=== PATIENT | female | born 1935 | race African-American/Black ===

== ENCOUNTER 2017-05-06 08:16 | Inpatient (IN) | payer MEDICARE, MEDICAID ==
[2017-05-06 09:15] LABS: Bilirubin Negative (Negative); Blood, Urine Negative (Negative); Glucose, Urine (Dipstick) 100 mg/dL (Negative); Ketone, Urine Negative (Negative); Nitrite Positive (Negative); Protein, Urine (Dipstick) 100 mg/dL (Neg-Trace)
[2017-05-06 09:17] LABS: Bacteria/HPF 4+ HPF (None Seen)
[2017-05-06 09:29] LABS: Hyaline Casts/LPF 0-3 HYALINE CAST LPF (0-3 Hyaline); RBC/HPF 0-3 HPF (0-3); Renal Epithelial 0-3 HPF (0-3); Transitional Epithelial 0-3 HPF (0-3)
[2017-05-06 09:53] LABS: ALT (SGPT) 31 U/L (8-55); AST (SGOT) 39 U/L (5-34); Alkaline Phosphatase 154 U/L (40-150); Anion Gap 12 mmol/L (10-20); BUN (Urea Nitrogen) 37 mg/dL (9.8-20.1); Calc. Creatinine Clearance 0 mL/min (70-130); Calcium 9.4 mg/dL (7.8-10.44); Carbon Dioxide 33 mmol/L (23-31); Chloride 103 mmol/L (98-107); Estimated GFR-MDRD 42; Globulin 3.9 g/dL (2.4-3.5); Protein, Total 6.7 g/dL (6.0-8.3)
--- NOTE | 2017-05-06 10:01 | CT ---
CT BRAIN WITHOUT CONTRAST: Date: 05/06/17 HISTORY: Headache. FINDINGS: Comparison made with exam of 01/22/17. There is ventricular sulcal prominence, which is stable. The ventricular size is stable and the basi lar cisterns are patent. No evidence of acute infarct, hemorrhage, midline shift, or abnormal extra- axial fluid collections are seen. The bony calvarium is intact. The visualized paranasal sinuses and mastoid air cells are well aerated. There is mucosal disease in the posterior right ethmoid air lulu ls. IMPRESSION: 1. No CT evidence of acute intracranial process. 2. Paranasal sinus disease. POS: [facility]
[2017-05-06] MEDS ORDERED: Piperacillin/Tazobactam 4.5 GM VIAL ONE (10:22)
[2017-05-06 12:30] LABS: Hematocrit 41.2 % (36.0-47.0); Mean Platelet Volume 9.3 fL (7.4-10.4)
[2017-05-06 13:05] LABS: Band 35 % (5-11); Neutrophil 57 % (42-75)
[2017-05-06] MEDS ORDERED: Loratadine 10 MG TAB PO PRN (13:29)
[2017-05-06] MEDS ORDERED: Ondansetron HCl/PF 4 MG/2 ML Vial IVP PRN (13:29)
[2017-05-06] MEDS ORDERED: Eucerin (Mineral Oil/Petrolatum,White) 30 gm Jar TOP PRN (13:29)
[2017-05-06] MEDS ORDERED: Senokot 8.6 MG TAB PO PRN (13:29)
[2017-05-06] MEDS ORDERED: Mag-Al 1200 mg/1200 mg/30 ML UDCUP PO PRN (13:29)
[2017-05-06] MEDS ORDERED: Milk Of Magnesia 30 ML UDCUP PO PRN (13:29)
[2017-05-06] MEDS ORDERED: HumaLOG 300 UNITS/3 ML VIAL SC PRN ×2 (13:29)
[2017-05-06] MEDS ORDERED: Zolpidem Tartrate 5 MG TAB PO PRN (13:29)
[2017-05-06] MEDS ORDERED: Sodium Chloride 0.65% Nasal 44 ML BOT EA NARE PRN (13:29)
[2017-05-06] MEDS ORDERED: Dextrose 50% Abboject 50 ML SYRINGE SLOW IVP PRN (13:29)
[2017-05-06] MEDS ORDERED: Ondansetron ODT 4 MG TAB PO PRN (13:29)
[2017-05-06] MEDS ORDERED: Artificial Tears 18 DROP/0.9 ML EA EYE PRN (13:29)
[2017-05-06] MEDS ORDERED: Dextrose 5% in Water 1,000 ML IV PRN (13:29)
[2017-05-06] MEDS ORDERED: Diabetic Tussin 200 MG/10 ML UDCUP PO PRN (13:29)
[2017-05-06] MEDS ORDERED: Loperamide HCl 2 MG CAP PO PRN (13:29)
[2017-05-06] MEDS: Meropenem 1 GM in Sodium Chloride 0.9% 100 ML IVPB SCH ×2 (14:27→21:17)
[2017-05-06] MEDS ORDERED: Sodium Chloride 0.9% 1,000 ML IV SCH (14:30)
[2017-05-06] MEDS: Sodium Chloride 0.9% 1,000 ML IV SCH (14:40)
--- NOTE | 2017-05-06 14:58 | HP ---
PRIMARY CARE PHYSICIAN: Slade Damon M.D. REASON FOR ADMISSION: Encephalopathy and urinary tract infection. HISTORY OF PRESENT ILLNESS: A 81-year-old female who lives at [facility]. She has chr onic indwelling Turcios catheter. At the retirement, the patient was appeared altered and confused. She was complaining of multiple things. She was having lower abdominal pain. She was having very poor appetite. Her blood sugar was running high and she was having low-grade fever at retirement . The patient was also having headache, body ache and for that reason, the patient was sent to the emergency room for evaluation. At the retirement, her blood sugar was running in the 400s. The patient was altered from her base line and this was gotten worse for the last 2-3 days. The patient was having low-grade fever in our hospital. She was hemodynamically stable in the emerg ency room. The patient had a CT brain which did not show any acute intracranial process. The patie nt's routine blood tests showed leukocytosis with bandemia. She was also found with acute kidney fa ilure and abnormal LFT. Her urinalysis was suggestive of urinary tract infection. At this point, t he patient is being admitted to medical floor for further evaluation and treatment. REVIEW OF SYSTEMS: The following complete review of systems was negative, unless otherwise mentione d in the HPI or below: Constitutional: Weight loss or gain, ability to conduct usual activities. Skin: Rash, itching. Eyes: Double vision, pain. ENT/Mouth: Nose bleeding, neck stiffness, pain, tenderness. Cardiovascular: Palpitations, dyspnea on exertion, orthopnea. Respiratory: Shortness of breath, wheezing, cough, hemoptysis, fever or night sweats. Gastrointestinal: Poor appetite, abdominal pain, heartburn, nausea, vomiting, constipation, or diar steven. Genitourinary: Urgency, frequency, dysuria, nocturia. Musculoskeletal: Pain, swelling. Neurologic/Psychiatric: Anxiety, depression. Allergy/Immunologic: Skin rash, bleeding tendency. Please see my HPI for pertinent positives and negatives. All other review of systems reviewed and n egative except as mentioned in the HPI. Reliability of review of systems is uncertain because of th e patient's level of consciousness. PAST MEDICAL HISTORY: Paroxysmal atrial fibrillation, chronic anticoagulation with Xarelto, history of recurrent urinary tract infection, Parkinson's disease, chronic physical deconditioning, decubit us ulcer on sacral area which is present on admission, diabetes type 2, history of Crohn's disease, hypertension, and gastroesophageal reflux disease. PAST SURGICAL HISTORY: Appendicectomy, foraminectomy with lumbar laminectomy. PAST PSYCHIATRIC HISTORY: Anxiety and depression. SOCIAL HISTORY: The patient lives at the [facility]. No history of tobacco, alcohol o r illicit drug abuse. The patient is bed bound. She requires lot of assistance from bed to wheelch air. FAMILY HISTORY: No strong family history of premature coronary artery disease, stroke or cancer. ALLERGIES: CODEINE and OPIOIDS. EMERGENCY ROOM COURSE: The patient is given vancomycin and Zosyn and IV fluid. CURRENT HOME MEDICATIONS: As per previous discharge summary, the patient is on following medication s: Amiodarone 200 mg daily, carbidopa/levodopa one tablet t.i.d., Pepcid 20 mg p.o. at bedtime, fol ic acid 1 mg p.o. daily, Lasix 40 mg p.o. b.i.d., Lantus insulin 15 units subcu at bedtime, pravasta tin 20 mg p.o. at bedtime, Xarelto 15 mg p.o. daily, trospium 20 mg p.o. at bedtime, Glucotrol 10 mg p.o. daily, pravastatin 10 mg p.o. at bedtime, MiraLax 17 grams p.o. daily, and vitamin C 500 mg p. o. b.i.d. PHYSICAL EXAMINATION: VITAL SIGNS: On arrival, blood pressure 140/61, pulse 73, respiratory rate 20, temperature 98.0, sa turation 98% on room air, weight 81.6 kilograms. GENERAL: The patient is currently alert, arousable, no obvious acute distress, confused and incoher ent. HEENT: Normocephalic and atraumatic. Eyes: Pupils round and reactive to light. Extraocular muscl es are intact. ENT: Oropharynx within normal limits. Dry mucous membranes. No oral lesions. No pharyngeal eryth scottie, no exudate. NECK: Supple. Range of motion is normal. No meningeal signs of irritation. LUNGS: Clear to auscultation without any rhonchi or rales. CARDIAC: S1, S2 regular. No murmur, no gallop, no rub. ABDOMEN: Soft, suprapubic tenderness noted. No peritoneal sign, no organomegaly, no mass. No dist ention. Bowel sounds present. BACK: Unremarkable, no CVA tenderness. GENITOURINARY: Turcios catheter in place. BACK EXAMINATION: Decubitus ulcer 8 x 4 cm without any surrounding erythema stage IV. EXTREMITIES: Upper extremity passive movements of all joints are normal. Lower extremity, no edema . Good peripheral pulsation. NEUROLOGIC: The patient is moving all four limbs. No focal neurological deficit noted. SKIN: No skin rash. PSYCHIATRIC: Flat affect. SIGNIFICANT LABS: 1. CT brain based on my review, no acute intracranial process. 2. CBC: WBC 12.0, hemoglobin 13.1, platelet 135 with bandemia 35. 3. BMP: Sodium 144, potassium 3.6, chloride 103, carbon dioxide 33, BUN 37, creatinine 1.45, gluco se 275, calcium 9.4, lactic acid 2.0. 4. LFT: AST 39, ALT 31, alkaline phosphatase 154, albumin 2.8. Urinalysis consistent with urinary tract infection. ASSESSMENT AND PLAN/IMPRESSION: 1. Sepsis with acute organ dysfunction. This patient has acute kidney failure, acute encephalopath y and her urinalysis suggestive of urinary tract infection. At this point, the patient with sepsis with acute organ dysfunction criteria, given bandemia, low-grade fever. The patient will be kept on broad spectrum antibiotic therapy with meropenem. We will follow up on culture result and based on culture result, we will change antibiotic therapy accordingly. We will continue with IV fluid with normal saline at 75 mL per hour. 2. Acute kidney failure, prerenal and septic etiology. We will continue with IV fluid and we will repeat BMP tomorrow. 3. Abnormal liver function tests, likely related with underlying sepsis. We will repeat LFT tomorr ow along with BMP. 4. Urinary tract infection secondary to chronic indwelling Turcios catheter. Based on previous cultu re and sensitivity result, we are starting with meropenem and we will follow up on culture result. Most likely this patient has underlying invasive urinary tract infection. At this point, we will tr eat with antibiotic therapy. 5. Paroxysmal atrial fibrillation on chronic anticoagulation therapy. Once we verify her home dose of amiodarone and Xarelto, we will continue while in hospital as well. 6. Diabetes type 2. We will continue with insulin as per sliding scale per protocol. Diabetic t will be given. We will verify her home dose of insulin and then we will start that dose in the spital and we will titrate insulin and diabetic medication. 7. Dyslipidemia. We will continue pravastatin 10 mg p.o. at bedtime. 8. Chronic anticoagulation therapy. We will continue Xarelto 15 mg p.o. daily. 9. Parkinson's disease. We will continue carbidopa/levodopa 1 tablet 2-3 times daily. 10. Gastroesophageal reflux disease. We will continue Pepcid 20 mg p.o. b.i.d. 11. Obesity with body mass index 35. Weight loss education given. 12. Hypertension. We will continue her home medication while in hospital and monitor and titrate b lood pressure medication. 13. Chronic physical deconditioning. The patient has bedbound status and she lives at retirement . 14. Deep venous thrombosis prophylaxis. The patient is already on Xarelto therapy. 15. Neurogenic bladder. The patient requiring chronic Turcios catheter. 16. Decubitus ulcer, sacral area. Please see wound care team note for detailed description. This is present on admission. The patient will need wound care team consultation supplement with Don b .i.d. and supplement with Glucerna b.i.d. Plan of care discussed with the patient's family member a t bedside. Disposition plan based on clinical course. We are expecting patient's stay in the hospital more yg n 2 midnights. CODE STATUS: The family member they do not want any kind of intubation in case of her cardiopulmona ry arrest, but they are okay with CPR, so they want to DO NOT INTUBATE status and that order will be written in the hospital.
[2017-05-06] MEDS: Pravastatin Sodium 20 MG TAB PO SCH (21:20)
[2017-05-06] MEDS: Rivaroxaban 15 MG TAB PO SCH (21:20)
[2017-05-06] MEDS: Carbidopa/Levodopa 25-250 mg Tablet PO SCH (21:21)
[2017-05-07] MEDS: Sodium Chloride 0.9% 1,000 ML IV SCH ×4 (05:15→18:03)
[2017-05-07 05:57] LABS: ALT (SGPT) 14 U/L (8-55); AST (SGOT) 23 U/L (5-34); Alkaline Phosphatase 98 U/L (40-150); Anion Gap 9 mmol/L (10-20); BUN (Urea Nitrogen) 31 mg/dL (9.8-20.1); Calc. Creatinine Clearance 56 mL/min (70-130); Calcium 8.5 mg/dL (7.8-10.44); Carbon Dioxide 27 mmol/L (23-31); Chloride 111 mmol/L (98-107); Estimated GFR-MDRD 59; Globulin 3.2 g/dL (2.4-3.5); Protein, Total 5.5 g/dL (6.0-8.3)
[2017-05-07 06:03] LABS: Band 4 % (5-11); Hematocrit 34.8 % (36.0-47.0); Mean Platelet Volume 9.1 fL (7.4-10.4); Metamyelocyte 1 % (0-0); Neutrophil 70 % (42-75); Red Blood Cell (RBC) Count 3.69 mill/uL (4.20-5.40); White Blood Cell (WBC) Count 13.3 thou/uL (4.8-10.8)
[2017-05-07] MEDS: Meropenem 1 GM in Sodium Chloride 0.9% 100 ML IVPB SCH ×3 (06:11→21:44)
[2017-05-07] MEDS ORDERED: Potassium Chloride 20 MEQ TAB PO SCH (08:00)
[2017-05-07] MEDS: Carbidopa/Levodopa 25-250 mg Tablet PO SCH ×3 (08:52→21:45)
[2017-05-07] MEDS: Folic Acid 1 MG TAB PO SCH (08:52)
--- NOTE | 2017-05-07 10:44 | PQF ---
ARCADIO MORALSE SALIM NOORJIBHAI MD [id number] CLINICAL DOCUMENTATION IMPROVEMENT CLARIFICATION FORM: ICD-10 Updated PLEASE DO AN ADDENDUM TO THE PROGRESS NOTE WITH ANY DOCUMENTATION UPDATES OR ADDITIONS AND CARRY THROUGH TO DC SUMMARY. THANK YOU. DATE: 05-07-17 ATTN: DR. AYERS Please exercise your independent, professional judgment in responding to the clarification form. Clinical indicators are provided on the bottom of this form for your review Please check appropriate box(s): [ x ] Severe Sepsis due to UTI DUE TO Indwelling Turcios Catheter [ ] Severe Sepsis due to UTI NOT due to Indwelling Turcios Catheter [ ] Other diagnosis [ ] Unable to determine For continuity of documentation, please document condition throughout progress notes and discharge summary. Thank You. CLINICAL INDICATORS - SIGNS / SYMPTOMS / LABS H&P: Encephalopathy Chronic Indwelling Turcios Catheter Sepsis with organ dysfunction (MARY) LABS: 10-5 WBC 12.0 10-6 WBC 13.3 10-5 TEMP 99.9 RESP 24 RISK FACTORS H&P: Chronic Indwelling Turcios Catheter Sepsis with organ dysfunction (MARY) UTI TREATMENTS: CPOE - MEROPENEM IV IVF BLOOD CULTURES: RIGHT ARM - GRAM NEGATIVE JABARI LEFT ARM - E.Coli URINE CULTURES: GRAM NEGATIVE JABARI THANK YOU, RADHA (This form is maintained as a part of the permanent medical record) 2014 [employer]. All Rights Reserved Radha Draper RN, BS [email or web address] Cell [facility]
[2017-05-07] MEDS: Acetaminophen 325 MG TAB PO PRN ×2 (12:16→18:03)
--- NOTE | 2017-05-07 12:37 | PQF ---
ARCADIO MORALES SALIM NOORJIBHAI MD [id number] CLINICAL DOCUMENTATION IMPROVEMENT CLARIFICATION FORM: ICD-10 Updated PLEASE DO AN ADDENDUM TO THE PROGRESS NOTE WITH ANY DOCUMENTATION UPDATES OR ADDITIONS AND CARRY THROUGH TO DC SUMMARY. THANK YOU. DATE: 05-07-17 ATTN: DR. AYERS Please exercise your independent, professional judgment in responding to the clarification form. Clinical indicators are provided on the bottom of this form for your review Please check appropriate box(s): [ x] Functional Quadriplegia d/t chronic physical deconditioning and Parkinson Dx [ ] Weakness (please specify anatomical area) Specify: [ ] Non dominant side [ ] Dominant side [ ] Other diagnosis [ ] Unable to determine CLINICAL INDICATORS - SIGNS / SYMPTOMS / LABS H&P: POOR APPETITE CHRONIC PHYSICAL DECONDITIONING BEDBOUND STATUS AND LIVES AT [facility] DECUBITUS ULCER 8X4 CM STAGE IV NURSING ASSESSMENT 10-5 RICH SCORES: MOBILITY - VERY LIMITED / ACTIVITY - BED RIDDEN CHRONIC INDWELLING KHAN CATHETER INCONTINENT - STOOL RISK FACTORS H&P: POOR APPETITE PARKINSON CHRONIC PHYSICAL DECONDITIONING BEDBOUND STATUS AND LIVES AT [facility] TREATMENT: WOUNDCARE CONSULT FOR DECUBITUS ULCER TURN Q2H MATTRESS: PRESSURE REDUCTION; SKIN KEPT FROM EXCESSIVE MOISTURE; ENCOURAGE TO PARTICIPATE IN FEEDING THANK YOU, RADHA SINGH [employer] House Supervisor [employer] (This form is maintained as a part of the permanent medical record) 2014 [employer]. All Rights Reserved Radha Draper RN, BS [email or web address] [facility]ITAL[facility]
--- NOTE | 2017-05-07 13:31 | PDOC.PN ---
- Subjective Encounter Start Date: 05/07/17 Encounter Start Time: 09:45 -: old records requested/rev Patient seen and examined. No new complaints. No overnight events, no fever - Objective Resuscitation Status: Resuscitation Status DNI:No Intubation MAR Reviewed: Yes Vital Signs & Weight: Vital Signs (12 hours) Temp Pulse Resp BP Pulse Ox 05/07/17 08:00 98.3 F 68 16 05/07/17 07:44 98.3 F 68 16 120/69 95 05/07/17 04:00 97.9 F 76 20 114/65 95 Weight Weight 186 lb 9 oz I&O: 05/06/17 05/07/17 05/08/17 06:59 06:59 06:59 Output Total 500 Balance -500 Result Diagrams: 05/07/17 05:01 05/07/17 05:01 Additional Labs: Accuchecks 05/07/17 05/07/17 05/06/17 11:19 05:27 20:14 POC Glucose 141 H 157 H 178 H 05/06/17 16:35 POC Glucose 191 H Phys Exam - Physical Examination Constitutional: NAD HEENT: PERRLA, moist MMs, sclera anicteric Neck: no JVD, supple Respiratory: no wheezing, no rales, no rhonchi Cardiovascular: RRR, no significant murmur, no rub Gastrointestinal: soft, non-tender, no distention, positive bowel sounds Musculoskeletal: no edema, pulses present Neurological: non-focal Lymphatic: no nodes Psychiatric: normal affect Skin: normal turgor Deviation from normal: see WCT note for decubitus ulcer Dx/Plan (1) Acute worsening of stage 3 chronic kidney disease Code(s): N18.3 - CHRONIC KIDNEY DISEASE, STAGE 3 (MODERATE) Status: Acute (2) Decubitus ulcer of sacral area Status: Acute Qualifiers: Pressure ulcer stage: stage 3 Qualified Code(s): L89.153 - Pressure ulcer of sacral region, stage 3 (3) Encephalopathy acute Code(s): G93.40 - ENCEPHALOPATHY, UNSPECIFIED Status: Acute (4) Hypokalemia Code(s): E87.6 - HYPOKALEMIA Status: Acute (5) Sepsis with acute organ dysfunction Code(s): A41.9 - SEPSIS, UNSPECIFIED ORGANISM; R65.20 - SEVERE SEPSIS WITHOUT SEPTIC SHOCK Status: Acute (6) UTI (urinary tract infection) Status: Acute (7) CKD (chronic kidney disease) stage 3, GFR 30-59 ml/min Status: Chronic (8) Diabetes type 2, controlled Code(s): E11.9 - TYPE 2 DIABETES MELLITUS WITHOUT COMPLICATIONS Status: Chronic (9) HTN (hypertension) Code(s): I10 - ESSENTIAL (PRIMARY) HYPERTENSION Status: Chronic (10) Obesity (BMI 30-39.9) Code(s): E66.9 - OBESITY, UNSPECIFIED Status: Chronic (11) Parkinson disease Code(s): G20 - PARKINSON'S DISEASE Status: Chronic (12) Paroxysmal atrial fibrillation Code(s): I48.0 - PAROXYSMAL ATRIAL FIBRILLATION Status: Chronic (13) Physical deconditioning Code(s): R53.81 - OTHER MALAISE Status: Chronic (14) Urethral stricture Code(s): N35.9 - URETHRAL STRICTURE, UNSPECIFIED Status: Chronic (15) Urinary retention Code(s): R33.9 - RETENTION OF URINE, UNSPECIFIED Status: Chronic (16) Bacteremia Code(s): R78.81 - BACTEREMIA Status: Acute - Plan cont current plan of care, plan discussed w/ family, continue antibiotics, social services assistant * continue meropenam * medication reviewed as below * symptomatic treatment * wound care. * replace potassium * slow improvement Review of Systems - Review of Systems Constitutional: Weakness. negative: Fever, Chills, Sweats, Malaise, Other ENT: negative: Ear Pain, Ear Discharge, Nose Pain, Nose Discharge, Nose Congestion, Mouth Pain, Mouth Swelling, Throat Pain, Throat Swelling, Other Respiratory: negative: Cough, Dry, Shortness of Breath, Hemoptysis, SOB with Excertion, Pleuritic Pain, Sputum, Wheezing Cardiovascular: negative: Chest Pain, Palpitations, Orthopnea, Paroxysmal Noc. Dyspnea, Edema, Light Headedness, Other Gastrointestinal: negative: Nausea, Vomiting, Abdominal Pain, Diarrhea, Constipation, Melena, Hematochezia, Other Genitourinary: negative: Dysuria, Frequency, Incontinence, Hematuria, Retention , Other Musculoskeletal: negative: Neck Pain, Shoulder Pain, Arm Pain, Back Pain, Hand Pain, Leg Pain, Foot Pain, Other Other: not reliable as pt is still confused - Medications/Allergies Allergies/Adverse Reactions: Allergies Allergy/AdvReac Type Severity Reaction Status Date / Time codeine Allergy Verified 05/06/17 12:57 Opioids Analgesics Allergy Uncoded 07/01/16 16:36 Medications: Current Medications Acetaminophen (Tylenol) 650 mg PO Q4H PRN PRN Reason: Headache/Fever or Pain Last Admin: 05/07/17 12:16 Dose: 650 mg Al Hydroxide/Mg Hydroxide (Maalox) 30 ml PO Q6H PRN PRN Reason: Heartburn or Indigestion Amiodarone HCl (Cordarone) 200 mg PO DAILY [facility] Last Admin: 05/07/17 08:52 Dose: 200 mg Artificial Tears (Tears Naturale) 0 drop EA EYE PRN PRN PRN Reason: Dry Eyes Carbidopa/Levodopa (Sinemet 25-250) 1 tab PO TID [facility] Last Admin: 05/07/17 08:52 Dose: 1 tab Dextrose/Water (Dextrose 50%) 25 gm SLOW IVP PRN PRN PRN Reason: Hypoglycemia Folic Acid (Folvite) 1 mg PO DAILY [facility] Last Admin: 05/07/17 08:52 Dose: 1 mg Glipizide (Glucotrol Xl) 5 mg PO QAM-WM [facility] Last Admin: 05/07/17 08:52 Dose: 5 mg Glucagon (Glucagon) 1 mg IM PRN PRN PRN Reason: Hypoglycemia Guaifenesin (Robitussin Sf) 200 mg PO Q4H PRN PRN Reason: Cough Hydralazine HCl (Apresoline) 10 mg SLOW IVP Q4H PRN PRN Reason: Systolic BP > 180 Dextrose/Water (D5w) 1,000 mls @ 0 mls/hr IV .Q0M PRN; As Directed PRN Reason: Hypoglycemia Meropenem 1 gm/ Sodium (Chloride) 100 mls @ 200 mls/hr IVPB Q8HR [facility] Last Admin: 05/07/17 06:11 Dose: 100 mls Sodium Chloride (Normal Saline 0.9%) 1,000 mls @ 75 mls/hr IV .[id number] [facility] Last Admin: 05/07/17 06:11 Dose: 1,000 mls Insulin Human Lispro (Humalog) 0 units SC .MODERATE SLIDING SC PRN PRN Reason: Moderate Correctional Scale Insulin Human Lispro (Humalog) 0 units SC .BEDTIME SLIDING SC PRN PRN Reason: Bedtime Correctional Scale Loperamide HCl (Imodium) 2 mg PO PRN PRN PRN Reason: Diarrhea/Loose Stools Loratadine (Claritin) 10 mg PO DAILYPRN PRN PRN Reason: Sinus Symptoms Magnesium Hydroxide (Milk Of Magnesium) 30 ml PO DAILYPRN PRN PRN Reason: Constipation Mineral Oil/White Petrolatum (Eucerin Cream) 0 gm TOP BIDPRN PRN PRN Reason: Dry Skin Ondansetron HCl (Zofran Odt) 4 mg PO Q6H PRN PRN Reason: Nausea/Vomiting Ondansetron HCl (Zofran) 4 mg IVP Q6H PRN PRN Reason: Nausea/Vomiting Rasagiline Mesylate ([Azilect] 1 Mg) 0 each PO DAILY [facility] Pravastatin Sodium (Pravachol) 10 mg PO HS [facility] Last Admin: 05/06/17 21:20 Dose: 10 mg Rivaroxaban (Xarelto) 15 mg PO QPM [facility] Last Admin: 05/06/17 21:20 Dose: 15 mg Senna (Senokot) 2 tab PO HSPRN PRN PRN Reason: Constipation Sodium Chloride (Murray Nasal Finley 0.65%) 0 ml EA NARE QIDPRN PRN PRN Reason: Nasal Congestion Sodium Chloride (Flush - Normal Saline) 10 ml IVF Q12HR [facility] Last Admin: 05/07/17 08:52 Dose: Not Given Sodium Chloride (Flush - Normal Saline) 10 ml IVF PRN PRN PRN Reason: Saline Flush Zolpidem Tartrate (Ambien) 5 mg PO HSPRN PRN PRN Reason: Insomnia
[2017-05-07 16:09] VITALS: BMI 35.1
[2017-05-07] MEDS: Pravastatin Sodium 20 MG TAB PO SCH (21:44)
[2017-05-07] MEDS: Rivaroxaban 15 MG TAB PO SCH (21:45)
[2017-05-08] MEDS: Meropenem 1 GM in Sodium Chloride 0.9% 100 ML IVPB SCH ×2 (05:26→14:10)
[2017-05-08 05:35] LABS: Anion Gap 10 mmol/L (10-20); BUN (Urea Nitrogen) 25 mg/dL (9.8-20.1); Calc. Creatinine Clearance 71 mL/min (70-130); Calcium 8.3 mg/dL (7.8-10.44); Carbon Dioxide 25 mmol/L (23-31); Chloride 113 mmol/L (98-107); Estimated GFR-MDRD 77
[2017-05-08] MEDS: Acetaminophen 325 MG TAB PO PRN (06:23)
[2017-05-08 06:29] LABS: Band 7 % (5-11); Hematocrit 34.9 % (36.0-47.0); Mean Platelet Volume 8.8 fL (7.4-10.4); Metamyelocyte 2 % (0-0); Myelocyte 2 % (0-0); Neutrophil 71 % (42-75); Red Blood Cell (RBC) Count 3.67 mill/uL (4.20-5.40); White Blood Cell (WBC) Count 14.5 thou/uL (4.8-10.8)
--- NOTE | 2017-05-08 09:36 | CT ---
CT ABDOMEN AND PELVIS NONCOTNRAST: HISTORY: Bilateral flank pain. COMPARISON: 07/02/16. FINDINGS: Each renal collecting system and ureter are decompressed without stone evident. Turcios catheter deco mpresses the urinary bladder. The lack of contrast limits evaluation for other abnormalities. There is bibasilar atelectasis and minimal bilateral pleural fluid. Hyperdense cyst associated with the anterior cortex of the right k idney is similar in appearance to the prior study. Prominent calcified fibroid involvement of the u terus is again demonstrated. There are degenerative changes of the lumbar spine. Minimal free fluid is present within the dependent portion of the pelvis. IMPRESSION: 1. No CT evidence of urinary tract obstruction or calcification. 2. Chronic-type findings are stable. POS: [facility]
[2017-05-08] MEDS: Carbidopa/Levodopa 25-250 mg Tablet PO SCH ×3 (10:07→20:52)
[2017-05-08] MEDS: Folic Acid 1 MG TAB PO SCH (10:07)
[2017-05-08] MEDS: Sodium Chloride 0.9% 1,000 ML IV SCH (10:14)
--- NOTE | 2017-05-08 13:54 | PDOC.PN ---
- Subjective Encounter Start Date: 05/08/17 Encounter Start Time: 12:00 Subjective: no sob, feels better - Objective Resuscitation Status: Resuscitation Status DNI:No Intubation MAR Reviewed: Yes Vital Signs & Weight: Vital Signs (12 hours) Temp Pulse Resp BP Pulse Ox 05/08/17 08:00 98.5 F 67 16 05/08/17 07:21 98.5 F 67 16 119/70 95 Weight Admit Weight 186 lb Weight 186 lb I&O: 05/07/17 05/08/17 05/09/17 06:59 06:59 06:59 Intake Total 3020 Output Total 500 800 Balance -500 2220 Result Diagrams: 05/08/17 05:08 05/08/17 05:08 Additional Labs: Accuchecks 05/08/17 05/08/17 05/07/17 11:44 05:22 20:01 POC Glucose 126 H 159 H 202 H 05/07/17 16:05 POC Glucose 128 H Phys Exam - Physical Examination HEENT: PERRLA, moist MMs Neck: no JVD, supple Respiratory: no wheezing, no rales Cardiovascular: RRR, no significant murmur Gastrointestinal: soft, non-tender, positive bowel sounds Musculoskeletal: no edema, pulses present Neurological: non-focal, moves all 4 limbs Dx/Plan (1) Bacteremia Code(s): R78.81 - BACTEREMIA Status: Acute Comment: e.coli (2) Decubitus ulcer of sacral area Status: Acute Qualifiers: Pressure ulcer stage: stage 3 Qualified Code(s): L89.153 - Pressure ulcer of sacral region, stage 3 (3) Encephalopathy acute Code(s): G93.40 - ENCEPHALOPATHY, UNSPECIFIED Status: Acute (4) Sepsis with acute organ dysfunction Code(s): A41.9 - SEPSIS, UNSPECIFIED ORGANISM; R65.20 - SEVERE SEPSIS WITHOUT SEPTIC SHOCK Status: Acute (5) UTI (urinary tract infection) Status: Acute Qualifiers: Urinary tract infection type: acute cystitis Hematuria presence: without hematuria Qualified Code(s): N30.00 - Acute cystitis without hematuria (6) CKD (chronic kidney disease) stage 3, GFR 30-59 ml/min Status: Chronic (7) Diabetes type 2, controlled Code(s): E11.9 - TYPE 2 DIABETES MELLITUS WITHOUT COMPLICATIONS Status: Chronic Qualifiers: Diabetes mellitus complication status: with unspecified complications Diabetes mellitus fdc insulin use: without terminal gauger use Qualified Code( s): E11.8 - Type 2 diabetes mellitus with unspecified complications (8) HTN (hypertension) Code(s): I10 - ESSENTIAL (PRIMARY) HYPERTENSION Status: Chronic Qualifiers: Hypertension type: essential hypertension Qualified Code(s): I10 - Essential (primary) hypertension (9) Obesity (BMI 30-39.9) Code(s): E66.9 - OBESITY, UNSPECIFIED Status: Chronic (10) Parkinson disease Code(s): G20 - PARKINSON'S DISEASE Status: Chronic (11) Paroxysmal atrial fibrillation Code(s): I48.0 - PAROXYSMAL ATRIAL FIBRILLATION Status: Chronic (12) Physical deconditioning Code(s): R53.81 - OTHER MALAISE Status: Chronic - Plan on meropenem -: await full culture report -: will likely need iv antibiotics and picc line -: ID consult -: wbc is 14k, CT abd results noted, no obstr uropathy * . Review of Systems - Medications/Allergies Allergies/Adverse Reactions: Allergies Allergy/AdvReac Type Severity Reaction Status Date / Time codeine Allergy Verified 05/06/17 12:57 Opioids Analgesics Allergy Uncoded 07/01/16 16:36 Medications: Current Medications Acetaminophen (Tylenol) 650 mg PO Q4H PRN PRN Reason: Headache/Fever or Pain Last Admin: 05/08/17 06:23 Dose: 650 mg Al Hydroxide/Mg Hydroxide (Maalox) 30 ml PO Q6H PRN PRN Reason: Heartburn or Indigestion Amiodarone HCl (Cordarone) 200 mg PO DAILY [facility] Last Admin: 05/08/17 10:07 Dose: 200 mg Artificial Tears (Tears Naturale) 0 drop EA EYE PRN PRN PRN Reason: Dry Eyes Carbidopa/Levodopa (Sinemet 25-250) 1 tab PO TID [facility] Last Admin: 05/08/17 10:07 Dose: 1 tab Dextrose/Water (Dextrose 50%) 25 gm SLOW IVP PRN PRN PRN Reason: Hypoglycemia Folic Acid (Folvite) 1 mg PO DAILY [facility] Last Admin: 05/08/17 10:07 Dose: 1 mg Glipizide (Glucotrol Xl) 5 mg PO QAM-WM [facility] Last Admin: 05/08/17 10:07 Dose: 5 mg Glucagon (Glucagon) 1 mg IM PRN PRN PRN Reason: Hypoglycemia Guaifenesin (Robitussin Sf) 200 mg PO Q4H PRN PRN Reason: Cough Hydralazine HCl (Apresoline) 10 mg SLOW IVP Q4H PRN PRN Reason: Systolic BP > 180 Dextrose/Water (D5w) 1,000 mls @ 0 mls/hr IV .Q0M PRN; As Directed PRN Reason: Hypoglycemia Meropenem 1 gm/ Sodium (Chloride) 100 mls @ 200 mls/hr IVPB Q8HR [facility] Last Admin: 05/08/17 05:26 Dose: 100 mls Sodium Chloride (Normal Saline 0.9%) 1,000 mls @ 75 mls/hr IV .[id number] [facility] Last Admin: 05/08/17 10:14 Dose: 1,000 mls Insulin Human Lispro (Humalog) 0 units SC .MODERATE SLIDING SC PRN PRN Reason: Moderate Correctional Scale Insulin Human Lispro (Humalog) 0 units SC .BEDTIME SLIDING SC PRN PRN Reason: Bedtime Correctional Scale Loperamide HCl (Imodium) 2 mg PO PRN PRN PRN Reason: Diarrhea/Loose Stools Loratadine (Claritin) 10 mg PO DAILYPRN PRN PRN Reason: Sinus Symptoms Magnesium Hydroxide (Milk Of Magnesium) 30 ml PO DAILYPRN PRN PRN Reason: Constipation Mineral Oil/White Petrolatum (Eucerin Cream) 0 gm TOP BIDPRN PRN PRN Reason: Dry Skin Ondansetron HCl (Zofran Odt) 4 mg PO Q6H PRN PRN Reason: Nausea/Vomiting Ondansetron HCl (Zofran) 4 mg IVP Q6H PRN PRN Reason: Nausea/Vomiting Rasagiline Mesylate ([Azilect] 1 Mg) 0 each PO DAILY [facility] Pravastatin Sodium (Pravachol) 10 mg PO HS [facility] Last Admin: 05/07/17 21:44 Dose: 10 mg Rivaroxaban (Xarelto) 15 mg PO QPM [facility] Last Admin: 05/07/17 21:45 Dose: 15 mg Senna (Senokot) 2 tab PO HSPRN PRN PRN Reason: Constipation Sodium Chloride ([place] Nasal [place] 0.65%) 0 ml EA NARE QIDPRN PRN PRN Reason: Nasal Congestion Sodium Chloride (Flush - Normal Saline) 10 ml IVF Q12HR [facility] Last Admin: 05/08/17 10:07 Dose: Not Given Sodium Chloride (Flush - Normal Saline) 10 ml IVF PRN PRN PRN Reason: Saline Flush Zolpidem Tartrate (Ambien) 5 mg PO HSPRN PRN PRN Reason: Insomnia
[2017-05-08] MEDS: cefTRIAXone\\ROCEPHIN 1 GM in Sodium Chloride 0.9% 100 ML IVPB SCH (16:57)
--- NOTE | 2017-05-08 19:31 | CON ---
DATE OF CONSULTATION: 05/08/2017 REASON FOR CONSULTATION: Bacteremia. HISTORY OF PRESENT ILLNESS: A 81-year-old with history of atrial fibrillation with prior cerebrovascular accidents and quadriparesis, Parkinson disease, Conn' s syndrome and type 2 diabetes with a chronic indwelling Turcios catheter and recurrent admissions for complications related to the urinary tract. The last time, I had seen her for influenza B infection and this time, she was brought in with change in mental status and fever. Initial evaluation demonstrated blood pressure 140/60, pulse 73, respirations 20, temperature 98 and O2 saturation 98%. She appeared alert, although she was confused. Lungs are clear to auscultation. Heart exam is normal. Abdomen is soft with suprapubic tenderness. The patient had a shallow or maybe a stage 2-3 presacral decubitus ulcer and 2 sets of blood cultures returned with E. coli and urine culture with E. coli and Proteus mirabilis. Susceptibility of the organisms revealed resistance to QUINOLONES. Currently, Ms. Pierson is awake and little bit drowsy. We took a little bit of an effort to wake her up, but she was able to reply to questions with quite a bit of limitation due to her neurological state. She was having some pain in her hands reportedly. Denies headaches, no dyspnea or abdominal pain, has had no diarrhea. PAST MEDICAL HISTORY: Includes atrial fibrillation with prior cerebrovascular accidents, multiinfarct dementia, quadriparesis, diffuse stiffness, Parkinson disease, Conn's syndrome, hypertension, type 2 diabetes, chronic indwelling Turcios catheter, prior urinary tract infections, prior influenza B and prior periurethral abscess. PAST SURGICAL HISTORY: Appendectomy, foraminotomy and lumbar laminectomy. ALLERGIES: CODEINE. MEDICATIONS: Currently receiving Tylenol, Cordarone, Sinemet, folic acid, Glucotrol, Robitussin, insulin, Imodium, Claritin, meropenem, rivaroxaban, and zolpidem. SOCIAL HISTORY: [place] resident. Never smoker, bed bound, needing 100% assistance for ADLs. FAMILY HISTORY: Noncontributory. PHYSICAL EXAMINATION: VITAL SIGNS: Temperature is normal. T-max 99.9, currently 98.5. Blood pressure 119/70. Pulse 67. Respirations 16. O2 sat 95%. SKIN: With stage 3 pressure ulceration, sore of a fissure-like wound in the presacral region with fresh red base, not much undermining. No erythema. A Turcios catheter in place. Peripheral IV access. No lymphadenopathy. HEENT: She has disconjugate eye movements. She grimaces and does not allow fairly easy examination of the orbits. Sclerae is white. No conjunctival problems. She has dentures and stiffness, which is diffuse. LUNGS: Symmetric air entry. HEART: S1 and S2 regular rate. No crackles or wheezing. ABDOMEN: Moderately distended. No guarding, no ascites or organomegaly. No bladder distention. No perineal inflammatory changes. EXTREMITIES: No joint inflammatory activity. She is able to move toes and fingers, but is very fairly slightly. Pulses are 1+ in dorsalis pedis. I did not get any plantar reflexes. No clonus noted. NEUROLOGIC: She is awake, knows her name. She did not know she was in the hospital or the date. It is very difficult to understand her speech because of significant dysarthria, probably related to this Parkinson disease. LABORATORY AND IMAGING DATA: Include a white cell count of 12 and now up to 14 , hemoglobin 11, platelets 163, bands are down to 7 from 35. Sodium 144, creatinine 0.86 and urinalysis with 7-10 wbc's. The patient had an abdomen and pelvis CT, no CT evidence of urinary obstruction, chronic T-spine findings, no contrast study. No chest x-ray done. ASSESSMENT: Parkinson disease, multiinfarct dementia, diffuse stiffness, indwelling Turcios catheter with invasive urinary tract infection, with E. coli bacteremia. No evidence of pneumonia, although chest x-ray not done. She may have some increased capillary permeability due to the bacteremia. DISCUSSION: At this point, the patient would require continuation of the beta- lactam Rocephin and eventually transition to oral administration of Augmentin for another 7-10 days. The patient would be at risk for recurrence of the same phenomenon in the future and ideally one would like to remove the catheter if possible. Could attempt removing catheter and checking postvoid residuals. This may have already been done in the past. She may have developed urinary retention. We will need continuing wound care and offloading to manage the presacral ulceration. MINI
[2017-05-08] MEDS: Rivaroxaban 15 MG TAB PO SCH (20:52)
[2017-05-08] MEDS: Pravastatin Sodium 20 MG TAB PO SCH (20:52)
[2017-05-09 04:59] LABS: Anion Gap 8 mmol/L (10-20); BUN (Urea Nitrogen) 19 mg/dL (9.8-20.1); Calc. Creatinine Clearance 79 mL/min (70-130); Calcium 8.1 mg/dL (7.8-10.44); Carbon Dioxide 26 mmol/L (23-31); Chloride 113 mmol/L (98-107); Estimated GFR-MDRD 87
[2017-05-09 05:00] LABS: Band 7 % (5-11); Hematocrit 33.5 % (36.0-47.0); Mean Platelet Volume 8.4 fL (7.4-10.4); Neutrophil 78 % (42-75); Red Blood Cell (RBC) Count 3.54 mill/uL (4.20-5.40)
[2017-05-09] MEDS: Sodium Chloride 0.9% 1,000 ML IV SCH ×2 (05:27→14:47)
[2017-05-09] MEDS: Acetaminophen 325 MG TAB PO PRN ×3 (05:38→20:35)
[2017-05-09] MEDS: Folic Acid 1 MG TAB PO SCH (09:07)
[2017-05-09] MEDS: Carbidopa/Levodopa 25-250 mg Tablet PO SCH ×3 (09:07→20:35)
--- NOTE | 2017-05-09 14:43 | PDOC.PN ---
- Subjective Encounter Start Date: 05/09/17 Encounter Start Time: 12:30 Subjective: awake, not in distress -: responds well to verbal questions - Objective Resuscitation Status: Resuscitation Status DNI:No Intubation MAR Reviewed: Yes Vital Signs & Weight: Vital Signs (12 hours) Temp Pulse Resp BP Pulse Ox 05/09/17 12:00 97.9 F 71 18 153/64 H 97 05/09/17 08:00 98.4 F 62 20 05/09/17 07:47 98.4 F 62 20 142/61 H 98 05/09/17 05:31 92 L 05/09/17 04:00 100.5 F H 74 18 153/69 H 94 L Weight Admit Weight 186 lb Weight 186 lb I&O: 05/08/17 05/09/17 05/10/17 06:59 06:59 06:59 Intake Total 3020 1219 Output Total 800 800 Balance 2220 419 Result Diagrams: 05/09/17 03:54 05/09/17 03:54 Additional Labs: Accuchecks 05/09/17 05/09/17 05/08/17 11:20 05:38 20:36 POC Glucose 115 H 131 H 99 05/08/17 16:14 POC Glucose 88 Phys Exam - Physical Examination HEENT: PERRLA, moist MMs Neck: no JVD, supple Respiratory: no wheezing, no rales Cardiovascular: RRR, no significant murmur Gastrointestinal: soft, non-tender, positive bowel sounds Musculoskeletal: pulses present Neurological: non-focal, moves all 4 limbs Dx/Plan (1) UTI (urinary tract infection) Status: Acute Qualifiers: Urinary tract infection type: acute cystitis Hematuria presence: without hematuria Qualified Code(s): N30.00 - Acute cystitis without hematuria (2) Bacteremia Code(s): R78.81 - BACTEREMIA Status: Acute Comment: e.coli (3) Decubitus ulcer of sacral area Status: Acute Qualifiers: Pressure ulcer stage: stage 3 Qualified Code(s): L89.153 - Pressure ulcer of sacral region, stage 3 (4) Encephalopathy acute Code(s): G93.40 - ENCEPHALOPATHY, UNSPECIFIED Status: Resolved (5) Sepsis with acute organ dysfunction Code(s): A41.9 - SEPSIS, UNSPECIFIED ORGANISM; R65.20 - SEVERE SEPSIS WITHOUT SEPTIC SHOCK Status: Acute (6) CKD (chronic kidney disease) stage 3, GFR 30-59 ml/min Status: Chronic (7) Diabetes type 2, controlled Code(s): E11.9 - TYPE 2 DIABETES MELLITUS WITHOUT COMPLICATIONS Status: Chronic Qualifiers: Diabetes mellitus complication status: with unspecified complications Diabetes mellitus correction insulin use: without buttermaker continuous churn use Qualified Code( s): E11.8 - Type 2 diabetes mellitus with unspecified complications (8) HTN (hypertension) Code(s): I10 - ESSENTIAL (PRIMARY) HYPERTENSION Status: Chronic Qualifiers: Hypertension type: essential hypertension Qualified Code(s): I10 - Essential (primary) hypertension (9) Obesity (BMI 30-39.9) Code(s): E66.9 - OBESITY, UNSPECIFIED Status: Chronic (10) Parkinson disease Code(s): G20 - PARKINSON'S DISEASE Status: Chronic (11) Paroxysmal atrial fibrillation Code(s): I48.0 - PAROXYSMAL ATRIAL FIBRILLATION Status: Chronic Comment: on xarelto (12) Physical deconditioning Code(s): R53.81 - OTHER MALAISE Status: Chronic - Plan tmax of 100 -: is on ceftriaxone -: wbc around 13 -: gentle iv hydration -: will need 2 more days of iv antibiotics * . Review of Systems - Medications/Allergies Allergies/Adverse Reactions: Allergies Allergy/AdvReac Type Severity Reaction Status Date / Time codeine Allergy Verified 05/06/17 12:57 Opioids Analgesics Allergy Uncoded 07/01/16 16:36 Medications: Current Medications Acetaminophen (Tylenol) 650 mg PO Q4H PRN PRN Reason: Headache/Fever or Pain Last Admin: 05/09/17 05:38 Dose: 650 mg Al Hydroxide/Mg Hydroxide (Maalox) 30 ml PO Q6H PRN PRN Reason: Heartburn or Indigestion Amiodarone HCl (Cordarone) 200 mg PO DAILY [facility] Last Admin: 05/09/17 09:07 Dose: 200 mg Artificial Tears (Tears Naturale) 0 drop EA EYE PRN PRN PRN Reason: Dry Eyes Carbidopa/Levodopa (Sinemet 25-250) 1 tab PO TID [facility] Last Admin: 05/09/17 09:07 Dose: 1 tab Dextrose/Water (Dextrose 50%) 25 gm SLOW IVP PRN PRN PRN Reason: Hypoglycemia Folic Acid (Folvite) 1 mg PO DAILY [facility] Last Admin: 05/09/17 09:07 Dose: 1 mg Glipizide (Glucotrol Xl) 5 mg PO QAM[facility] Last Admin: 05/09/17 09:06 Dose: 5 mg Glucagon (Glucagon) 1 mg IM PRN PRN PRN Reason: Hypoglycemia Guaifenesin (Robitussin Sf) 200 mg PO Q4H PRN PRN Reason: Cough Hydralazine HCl (Apresoline) 10 mg SLOW IVP Q4H PRN PRN Reason: Systolic BP > 180 Dextrose/Water (D5w) 1,000 mls @ 0 mls/hr IV .Q0M PRN; As Directed PRN Reason: Hypoglycemia Sodium Chloride (Normal Saline 0.9%) 1,000 mls @ 75 mls/hr IV .[id number] [facility] Last Admin: 05/09/17 05:27 Dose: 1,000 mls Ceftriaxone Sodium 1 gm/ (Sodium Chloride) 100 mls @ 200 mls/hr IVPB Q24HR [facility] Last Admin: 05/08/17 16:57 Dose: 100 mls Insulin Human Lispro (Humalog) 0 units SC .MODERATE SLIDING SC PRN PRN Reason: Moderate Correctional Scale Insulin Human Lispro (Humalog) 0 units SC .BEDTIME SLIDING SC PRN PRN Reason: Bedtime Correctional Scale Loperamide HCl (Imodium) 2 mg PO PRN PRN PRN Reason: Diarrhea/Loose Stools Loratadine (Claritin) 10 mg PO DAILYPRN PRN PRN Reason: Sinus Symptoms Magnesium Hydroxide (Milk Of Magnesium) 30 ml PO DAILYPRN PRN PRN Reason: Constipation Mineral Oil/White Petrolatum (Eucerin Cream) 0 gm TOP BIDPRN PRN PRN Reason: Dry Skin Ondansetron HCl (Zofran Odt) 4 mg PO Q6H PRN PRN Reason: Nausea/Vomiting Ondansetron HCl (Zofran) 4 mg IVP Q6H PRN PRN Reason: Nausea/Vomiting Rasagiline Mesylate ([Azilect] 1 Mg) 0 each PO DAILY [facility] Pravastatin Sodium (Pravachol) 10 mg PO HS [facility] Last Admin: 05/08/17 20:52 Dose: 10 mg Rivaroxaban (Xarelto) 15 mg PO QPM [facility] Last Admin: 05/08/17 20:52 Dose: 15 mg Senna (Senokot) 2 tab PO HSPRN PRN PRN Reason: Constipation Sodium Chloride ([place] Nasal [place] 0.65%) 0 ml EA NARE QIDPRN PRN PRN Reason: Nasal Congestion Sodium Chloride (Flush - Normal Saline) 10 ml IVF Q12HR [facility] Last Admin: 05/09/17 09:18 Dose: Not Given Sodium Chloride (Flush - Normal Saline) 10 ml IVF PRN PRN PRN Reason: Saline Flush Zolpidem Tartrate (Ambien) 5 mg PO HSPRN PRN PRN Reason: Insomnia
[2017-05-09] MEDS: cefTRIAXone\\ROCEPHIN 1 GM in Sodium Chloride 0.9% 100 ML IVPB SCH (16:28)
[2017-05-09] MEDS: Pravastatin Sodium 20 MG TAB PO SCH (20:34)
[2017-05-09] MEDS: Rivaroxaban 15 MG TAB PO SCH (20:35)
[2017-05-10 05:06] LABS: #Eosinphils 0.1 thou/uL (0.0-0.7); #Lymphocytes 1.1 thou/uL (1.20-3.40); #Monocytes 0.7 thou/uL (0.11-0.59); #Neutrophils 8.1 thou/uL (1.40-6.50); %Basophils 0.1 % (0.0-1.0); %Lymphocytes 10.9 % (21.0-51.0); %Monocytes 7.3 % (0.0-10.0); Hematocrit 36.9 % (36.0-47.0); Mean Platelet Volume 8.7 fL (7.4-10.4); Red Blood Cell (RBC) Count 3.86 mill/uL (4.20-5.40)
[2017-05-10 05:10] LABS: Anion Gap 10 mmol/L (10-20); BUN (Urea Nitrogen) 21 mg/dL (9.8-20.1); Calc. Creatinine Clearance 84 mL/min (70-130); Calcium 8.2 mg/dL (7.8-10.44); Carbon Dioxide 25 mmol/L (23-31); Chloride 112 mmol/L (98-107); Estimated GFR-MDRD Greater than 90
[2017-05-10] MEDS: Sodium Chloride 0.9% 1,000 ML IV SCH ×2 (05:33→09:16)
[2017-05-10] MEDS: Carbidopa/Levodopa 25-250 mg Tablet PO SCH ×3 (09:11→21:16)
[2017-05-10] MEDS: Folic Acid 1 MG TAB PO SCH (09:16)
--- NOTE | 2017-05-10 15:20 | PDOC.PN ---
- Subjective Encounter Start Date: 05/10/17 Encounter Start Time: 12:40 Subjective: awake, c/o headache -: no nausea or vomiting -: responds well to verbal questions - Objective Resuscitation Status: Resuscitation Status DNI:No Intubation MAR Reviewed: Yes Vital Signs & Weight: Vital Signs (12 hours) Temp Pulse Resp BP Pulse Ox 05/10/17 08:00 98.8 F 66 20 149/76 H 97 05/10/17 03:57 98.2 F 80 18 132/73 98 05/10/17 03:40 97 Weight Admit Weight 186 lb Weight 186 lb I&O: 05/09/17 05/10/17 05/11/17 06:59 06:59 06:59 Intake Total 1219 1406 Output Total 800 700 Balance 419 706 Result Diagrams: 05/10/17 03:40 05/10/17 03:40 Additional Labs: Accuchecks 05/10/17 05/10/17 05/09/17 11:36 05:35 20:33 POC Glucose 91 117 H 107 05/09/17 16:26 POC Glucose 97 Phys Exam - Physical Examination HEENT: moist MMs, sclera anicteric Neck: no JVD, supple Respiratory: no wheezing, no rales Cardiovascular: RRR, no significant murmur Gastrointestinal: soft, non-tender, no distention, positive bowel sounds Musculoskeletal: pulses present, edema present Neurological: non-focal, moves all 4 limbs Psychiatric: A&O x 3 Dx/Plan (1) UTI (urinary tract infection) Status: Acute Qualifiers: Urinary tract infection type: acute cystitis Hematuria presence: without hematuria Qualified Code(s): N30.00 - Acute cystitis without hematuria (2) Bacteremia Code(s): R78.81 - BACTEREMIA Status: Acute Comment: e.coli (3) Decubitus ulcer of sacral area Status: Acute Qualifiers: Pressure ulcer stage: stage 3 Qualified Code(s): L89.153 - Pressure ulcer of sacral region, stage 3 (4) Encephalopathy acute Code(s): G93.40 - ENCEPHALOPATHY, UNSPECIFIED Status: Resolved (5) Sepsis with acute organ dysfunction Code(s): A41.9 - SEPSIS, UNSPECIFIED ORGANISM; R65.20 - SEVERE SEPSIS WITHOUT SEPTIC SHOCK Status: Acute (6) Diabetes type 2, controlled Code(s): E11.9 - TYPE 2 DIABETES MELLITUS WITHOUT COMPLICATIONS Status: Chronic Qualifiers: Diabetes mellitus complication status: with unspecified complications Diabetes mellitus superintendent terminal insulin use: without custodial use Qualified Code( s): E11.8 - Type 2 diabetes mellitus with unspecified complications (7) HTN (hypertension) Code(s): I10 - ESSENTIAL (PRIMARY) HYPERTENSION Status: Chronic Qualifiers: Hypertension type: essential hypertension Qualified Code(s): I10 - Essential (primary) hypertension (8) Obesity (BMI 30-39.9) Code(s): E66.9 - OBESITY, UNSPECIFIED Status: Chronic (9) Parkinson disease Code(s): G20 - PARKINSON'S DISEASE Status: Chronic (10) Paroxysmal atrial fibrillation Code(s): I48.0 - PAROXYSMAL ATRIAL FIBRILLATION Status: Chronic Comment: on xarelto (11) Physical deconditioning Code(s): R53.81 - OTHER MALAISE Status: Chronic (12) MARY (acute kidney injury) Code(s): N17.9 - ACUTE KIDNEY FAILURE, UNSPECIFIED Status: Resolved - Plan is on ceftriaxone -: dc iv fluids, chronic aguilar from 2 yrs due to incomplete voiding/incontinen -: d/w daughter at bedside -: dc plan in am if stable -: augmentin for dc plan for 10 days * . Review of Systems - Medications/Allergies Allergies/Adverse Reactions: Allergies Allergy/AdvReac Type Severity Reaction Status Date / Time codeine Allergy Verified 05/06/17 12:57 Opioids Analgesics Allergy Uncoded 07/01/16 16:36 Medications: Current Medications Acetaminophen (Tylenol) 650 mg PO Q4H PRN PRN Reason: Headache/Fever or Pain Last Admin: 05/09/17 20:35 Dose: 650 mg Al Hydroxide/Mg Hydroxide (Maalox) 30 ml PO Q6H PRN PRN Reason: Heartburn or Indigestion Amiodarone HCl (Cordarone) 200 mg PO DAILY [facility] Last Admin: 05/10/17 09:11 Dose: 200 mg Artificial Tears (Tears Naturale) 0 drop EA EYE PRN PRN PRN Reason: Dry Eyes Carbidopa/Levodopa (Sinemet 25-250) 1 tab PO TID [facility] Last Admin: 05/10/17 15:00 Dose: 1 tab Dextrose/Water (Dextrose 50%) 25 gm SLOW IVP PRN PRN PRN Reason: Hypoglycemia Folic Acid (Folvite) 1 mg PO DAILY [facility] Last Admin: 05/10/17 09:16 Dose: 1 mg Glipizide (Glucotrol Xl) 5 mg PO QAM[facility] Last Admin: 05/10/17 09:11 Dose: 5 mg Glucagon (Glucagon) 1 mg IM PRN PRN PRN Reason: Hypoglycemia Guaifenesin (Robitussin Sf) 200 mg PO Q4H PRN PRN Reason: Cough Hydralazine HCl (Apresoline) 10 mg SLOW IVP Q4H PRN PRN Reason: Systolic BP > 180 Dextrose/Water (D5w) 1,000 mls @ 0 mls/hr IV .Q0M PRN; As Directed PRN Reason: Hypoglycemia Ceftriaxone Sodium 1 gm/ (Sodium Chloride) 100 mls @ 200 mls/hr IVPB Q24HR [facility] Last Admin: 05/09/17 16:28 Dose: 100 mls Ibuprofen (Motrin) 400 mg PO Q8H PRN PRN Reason: Pain Insulin Human Lispro (Humalog) 0 units SC .MODERATE SLIDING SC PRN PRN Reason: Moderate Correctional Scale Insulin Human Lispro (Humalog) 0 units SC .BEDTIME SLIDING SC PRN PRN Reason: Bedtime Correctional Scale Loperamide HCl (Imodium) 2 mg PO PRN PRN PRN Reason: Diarrhea/Loose Stools Loratadine (Claritin) 10 mg PO DAILYPRN PRN PRN Reason: Sinus Symptoms Magnesium Hydroxide (Milk Of Magnesium) 30 ml PO DAILYPRN PRN PRN Reason: Constipation Mineral Oil/White Petrolatum (Eucerin Cream) 0 gm TOP BIDPRN PRN PRN Reason: Dry Skin Morphine Sulfate (Morphine Sulfate) 2 mg SLOW IVP Q4H PRN PRN Reason: Chest Pain/BP Elevations Ondansetron HCl (Zofran Odt) 4 mg PO Q6H PRN PRN Reason: Nausea/Vomiting Ondansetron HCl (Zofran) 4 mg IVP Q6H PRN PRN Reason: Nausea/Vomiting Rasagiline Mesylate ([Azilect] 1 Mg) 0 each PO DAILY [facility] Pravastatin Sodium (Pravachol) 10 mg PO HS [facility] Last Admin: 05/09/17 20:34 Dose: 10 mg Rivaroxaban (Xarelto) 15 mg PO QPM [facility] Last Admin: 05/09/17 20:35 Dose: 15 mg Senna (Senokot) 2 tab PO HSPRN PRN PRN Reason: Constipation Sodium Chloride ([place] Nasal [place] 0.65%) 0 ml EA NARE QIDPRN PRN PRN Reason: Nasal Congestion Sodium Chloride (Flush - Normal Saline) 10 ml IVF Q12HR [facility] Last Admin: 05/10/17 09:16 Dose: Not Given Sodium Chloride (Flush - Normal Saline) 10 ml IVF PRN PRN PRN Reason: Saline Flush Zolpidem Tartrate (Ambien) 5 mg PO HSPRN PRN PRN Reason: Insomnia
[2017-05-10] MEDS: cefTRIAXone\\ROCEPHIN 1 GM in Sodium Chloride 0.9% 100 ML IVPB SCH (17:01)
[2017-05-10] MEDS ORDERED: Furosemide 40 MG/4 ML VIAL SLOW IVP SCH (18:15)
[2017-05-10] MEDS: Pravastatin Sodium 20 MG TAB PO SCH (21:16)
[2017-05-10] MEDS: Rivaroxaban 15 MG TAB PO SCH (21:16)
[2017-05-11 05:27] LABS: #Eosinphils 0.1 thou/uL (0.0-0.7); #Lymphocytes 1.1 thou/uL (1.20-3.40); #Monocytes 0.6 thou/uL (0.11-0.59); #Neutrophils 8.1 thou/uL (1.40-6.50); %Basophils 0.2 % (0.0-1.0); %Eosinophils 0.7 % (0.0-10.0); %Monocytes 6.1 % (0.0-10.0); Hematocrit 36.9 % (36.0-47.0); Mean Platelet Volume 8.2 fL (7.4-10.4); Red Blood Cell (RBC) Count 3.87 mill/uL (4.20-5.40); White Blood Cell (WBC) Count 9.9 thou/uL (4.8-10.8)
[2017-05-11 05:44] LABS: Anion Gap 9 mmol/L (10-20); BUN (Urea Nitrogen) 16 mg/dL (9.8-20.1); Calc. Creatinine Clearance 81 mL/min (70-130); Calcium 8.2 mg/dL (7.8-10.44); Carbon Dioxide 26 mmol/L (23-31); Chloride 110 mmol/L (98-107); Estimated GFR-MDRD 90
[2017-05-11] MEDS: Folic Acid 1 MG TAB PO SCH (08:26)
[2017-05-11] MEDS: Carbidopa/Levodopa 25-250 mg Tablet PO SCH ×2 (08:27→14:21)
--- NOTE | 2017-05-11 11:40 | RAD ---
ONE VIEW CHEST: COMPARISON: 07/01/2016 FINDINGS: Enlarged cardiac silhouette. Pulmonary vessels are prominent. Bilateral pleural effusions are susp ected. A component of loculated pleural fluid in the right lung base may be present. Patchy inters titial and alveolar infiltrates. No pneumothorax. IMPRESSION: 1. Congestive heart failure. 2. Possible loculated pleural effusion in the right hemithorax. Correlation made with abdomen CT from 05/08/2017 only demonstrates a small amount of fluid; however, on that examination, the degree of opacification was not as prominent. Better interrogation with a two view chest radiograph may be beneficial. POS: [facility]
--- NOTE | 2017-05-11 11:55 | CT ---
CT BRAIN NONCONTRAST: HISTORY: 81-year-old female with headache. FINDINGS: There is no midline shift or any other mass effect. There is no evidence of acute intracranial hemo rrhage, large cortical infarct, obstructive hydrocephalus, or extraaxial fluid collection. The calv arium is intact. There is opacification of most of the left mastoid air cells. The right tympanomast oid cavity, sphenoid sinus, bilateral frontal sinuses, bilateral maxillary sinuses, and left ethmoid air cells are clear. There is opacification of right posterior ethmoid air cells. IMPRESSION: 1. No acute intracranial findings. 2. Left mastoid effusion. 3. Opacification of right posterior ethmoid air cells. 4. No interval change overall since 05-06-17. [place] POS: [facility]
--- NOTE | 2017-05-11 12:20 | PDOC.PN ---
- Subjective Encounter Start Date: 05/11/17 Encounter Start Time: 12:00 Subjective: c/o sob and headache -: no cough or abd pain - Objective Resuscitation Status: Resuscitation Status DNI:No Intubation MAR Reviewed: Yes Vital Signs & Weight: Vital Signs (12 hours) Temp Pulse Resp BP Pulse Ox 05/11/17 08:00 98.3 F 66 16 98 05/11/17 07:39 98.3 F 66 16 131/55 L 98 05/11/17 04:00 98.5 F 68 16 131/75 95 Weight Admit Weight 186 lb Weight 186 lb I&O: 05/10/17 05/11/17 05/12/17 06:59 06:59 06:59 Intake Total 1406 986 Output Total 700 2700 Balance 706 -7617 Result Diagrams: 05/11/17 05:03 05/11/17 05:03 Additional Labs: Accuchecks 05/11/17 05/11/17 05/10/17 11:18 03:48 20:50 POC Glucose 111 H 132 H 129 H 05/10/17 16:21 POC Glucose 93 Phys Exam - Physical Examination HEENT: PERRLA, moist MMs Neck: no JVD, supple Respiratory: no wheezing rales+ Cardiovascular: RRR, no significant murmur Gastrointestinal: soft, non-tender, positive bowel sounds aguilar+ Musculoskeletal: no edema, pulses present Neurological: non-focal, moves all 4 limbs Dx/Plan (1) UTI (urinary tract infection) Status: Acute Qualifiers: Urinary tract infection type: acute cystitis Hematuria presence: without hematuria Qualified Code(s): N30.00 - Acute cystitis without hematuria (2) Bacteremia Code(s): R78.81 - BACTEREMIA Status: Acute Comment: e.coli (3) Decubitus ulcer of sacral area Status: Acute Qualifiers: Pressure ulcer stage: stage 3 Qualified Code(s): L89.153 - Pressure ulcer of sacral region, stage 3 (4) Encephalopathy acute Code(s): G93.40 - ENCEPHALOPATHY, UNSPECIFIED Status: Resolved (5) Sepsis with acute organ dysfunction Code(s): A41.9 - SEPSIS, UNSPECIFIED ORGANISM; R65.20 - SEVERE SEPSIS WITHOUT SEPTIC SHOCK Status: Acute (6) Diabetes type 2, controlled Code(s): E11.9 - TYPE 2 DIABETES MELLITUS WITHOUT COMPLICATIONS Status: Chronic Qualifiers: Diabetes mellitus complication status: with unspecified complications Diabetes mellitus diamond assorter insulin use: without skilled nursing use Qualified Code( s): E11.8 - Type 2 diabetes mellitus with unspecified complications (7) HTN (hypertension) Code(s): I10 - ESSENTIAL (PRIMARY) HYPERTENSION Status: Chronic Qualifiers: Hypertension type: essential hypertension Qualified Code(s): I10 - Essential (primary) hypertension (8) Obesity (BMI 30-39.9) Code(s): E66.9 - OBESITY, UNSPECIFIED Status: Chronic (9) Parkinson disease Code(s): G20 - PARKINSON'S DISEASE Status: Chronic (10) Paroxysmal atrial fibrillation Code(s): I48.0 - PAROXYSMAL ATRIAL FIBRILLATION Status: Chronic Comment: on xarelto (11) Physical deconditioning Code(s): R53.81 - OTHER MALAISE Status: Chronic (12) MARY (acute kidney injury) Code(s): N17.9 - ACUTE KIDNEY FAILURE, UNSPECIFIED Status: Resolved - Plan has volume overload, needs 3-4 doses of iv diuresis -: continue ceftriaxone -: d/w Mr.Houston Noe valencia over phone and gave an update -: oob to chair as tolerated * . Review of Systems - Medications/Allergies Allergies/Adverse Reactions: Allergies Allergy/AdvReac Type Severity Reaction Status Date / Time codeine Allergy Verified 05/06/17 12:57 Opioids Analgesics Allergy Uncoded 07/01/16 16:36 Medications: Current Medications Acetaminophen (Tylenol) 650 mg PO Q4H PRN PRN Reason: Headache/Fever or Pain Last Admin: 05/09/17 20:35 Dose: 650 mg Al Hydroxide/Mg Hydroxide (Maalox) 30 ml PO Q6H PRN PRN Reason: Heartburn or Indigestion Amiodarone HCl (Cordarone) 200 mg PO DAILY [facility] Last Admin: 05/11/17 08:26 Dose: 200 mg Artificial Tears (Tears Naturale) 0 drop EA EYE PRN PRN PRN Reason: Dry Eyes Carbidopa/Levodopa (Sinemet 25-250) 1 tab PO TID [facility] Last Admin: 05/11/17 08:27 Dose: 1 tab Dextrose/Water (Dextrose 50%) 25 gm SLOW IVP PRN PRN PRN Reason: Hypoglycemia Folic Acid (Folvite) 1 mg PO DAILY [facility] Last Admin: 05/11/17 08:26 Dose: 1 mg Furosemide (Lasix) 40 mg SLOW IVP 0600,1400 [facility] Glipizide (Glucotrol Xl) 5 mg PO QAM[facility] Last Admin: 05/11/17 08:27 Dose: 5 mg Glucagon (Glucagon) 1 mg IM PRN PRN PRN Reason: Hypoglycemia Guaifenesin (Robitussin Sf) 200 mg PO Q4H PRN PRN Reason: Cough Hydralazine HCl (Apresoline) 10 mg SLOW IVP Q4H PRN PRN Reason: Systolic BP > 180 Dextrose/Water (D5w) 1,000 mls @ 0 mls/hr IV .Q0M PRN; As Directed PRN Reason: Hypoglycemia Ceftriaxone Sodium 1 gm/ (Sodium Chloride) 100 mls @ 200 mls/hr IVPB Q24HR [facility] Last Admin: 05/10/17 17:01 Dose: 100 mls Ibuprofen (Motrin) 400 mg PO Q8H PRN PRN Reason: Pain Insulin Human Lispro (Humalog) 0 units SC .MODERATE SLIDING SC PRN PRN Reason: Moderate Correctional Scale Insulin Human Lispro (Humalog) 0 units SC .BEDTIME SLIDING SC PRN PRN Reason: Bedtime Correctional Scale Loperamide HCl (Imodium) 2 mg PO PRN PRN PRN Reason: Diarrhea/Loose Stools Loratadine (Claritin) 10 mg PO DAILYPRN PRN PRN Reason: Sinus Symptoms Magnesium Hydroxide (Milk Of Magnesium) 30 ml PO DAILYPRN PRN PRN Reason: Constipation Mineral Oil/White Petrolatum (Eucerin Cream) 0 gm TOP BIDPRN PRN PRN Reason: Dry Skin Morphine Sulfate (Morphine Sulfate) 2 mg SLOW IVP Q4H PRN PRN Reason: Chest Pain/BP Elevations Ondansetron HCl (Zofran Odt) 4 mg PO Q6H PRN PRN Reason: Nausea/Vomiting Ondansetron HCl (Zofran) 4 mg IVP Q6H PRN PRN Reason: Nausea/Vomiting Rasagiline Mesylate ([Azilect] 1 Mg) 0 each PO DAILY [facility] Pravastatin Sodium (Pravachol) 10 mg PO HS [facility] Last Admin: 05/10/17 21:16 Dose: 10 mg Rivaroxaban (Xarelto) 15 mg PO QPM [facility] Last Admin: 05/10/17 21:16 Dose: 15 mg Senna (Senokot) 2 tab PO HSPRN PRN PRN Reason: Constipation Sodium Chloride ([place] Nasal [place] 0.65%) 0 ml EA NARE QIDPRN PRN PRN Reason: Nasal Congestion Sodium Chloride (Flush - Normal Saline) 10 ml IVF Q12HR [facility] Last Admin: 05/11/17 08:27 Dose: 10 ml Sodium Chloride (Flush - Normal Saline) 10 ml IVF PRN PRN PRN Reason: Saline Flush Zolpidem Tartrate (Ambien) 5 mg PO HSPRN PRN PRN Reason: Insomnia
[2017-05-11] MEDS: Furosemide 40 MG/4 ML VIAL SLOW IVP SCH (14:21)
[2017-05-11] MEDS: cefTRIAXone\\ROCEPHIN 1 GM in Sodium Chloride 0.9% 100 ML IVPB SCH (16:54)
[2017-05-12 05:36] LABS: #Eosinphils 0.1 thou/uL (0.0-0.7); #Lymphocytes 1.2 thou/uL (1.20-3.40); #Monocytes 0.7 thou/uL (0.11-0.59); #Neutrophils 7.5 thou/uL (1.40-6.50); %Basophils 0.2 % (0.0-1.0); %Eosinophils 1.4 % (0.0-10.0); %Lymphocytes 12.7 % (21.0-51.0); Hematocrit 39.9 % (36.0-47.0); Mean Platelet Volume 9.2 fL (7.4-10.4); Red Blood Cell (RBC) Count 4.24 mill/uL (4.20-5.40); White Blood Cell (WBC) Count 9.5 thou/uL (4.8-10.8)
[2017-05-12] MEDS: Furosemide 40 MG/4 ML VIAL SLOW IVP SCH ×2 (05:43→13:55)
[2017-05-12] MEDS: Rivaroxaban 15 MG TAB PO SCH ×2 (05:47→20:43)
[2017-05-12] MEDS: Pravastatin Sodium 20 MG TAB PO SCH ×2 (05:48→20:43)
[2017-05-12] MEDS: Carbidopa/Levodopa 25-250 mg Tablet PO SCH ×4 (05:48→20:43)
[2017-05-12 05:56] LABS: Anion Gap 13 mmol/L (10-20); BUN (Urea Nitrogen) 12 mg/dL (9.8-20.1); Calc. Creatinine Clearance 86 mL/min (70-130); Calcium 8.2 mg/dL (7.8-10.44); Carbon Dioxide 23 mmol/L (23-31); Chloride 106 mmol/L (98-107); Estimated GFR-MDRD Greater than 90
[2017-05-12] MEDS: Folic Acid 1 MG TAB PO SCH (08:40)
--- NOTE | 2017-05-12 09:34 | RAD ---
PORTABLE CHEST ONE VIEW: Date: 05-12-17 Time: 8:19 a.m. History: Short of breath, aspiration. FINDINGS/IMPRESSION: Comparison is made with the exam of previous day. The heart size is enlarged. There are bilateral pleural effusions with adjacent infiltrate/atelectat ic changes. No pneumothoraces are seen. POS: [facility]
--- NOTE | 2017-05-12 15:25 | PDOC.PN ---
- Subjective Encounter Start Date: 05/12/17 Encounter Start Time: 13:00 Subjective: awake, not in resp distress -: responds to verbal stimuli well - Objective Resuscitation Status: Resuscitation Status DNI:No Intubation MAR Reviewed: Yes Vital Signs & Weight: Vital Signs (12 hours) Temp Pulse Resp BP Pulse Ox 05/12/17 08:00 97.7 F 64 16 99 05/12/17 07:52 97.7 F 64 16 136/69 99 05/12/17 04:00 98 F 66 18 135/72 98 Weight Admit Weight 186 lb Weight 186 lb I&O: 05/11/17 05/12/17 05/13/17 06:59 06:59 06:59 Intake Total 986 110 Output Total 9732 3400 1000 Balance -7872 -1460 -1000 Result Diagrams: 05/12/17 05:04 05/12/17 05:04 Additional Labs: Accuchecks 05/12/17 05/12/17 05/11/17 11:13 05:47 23:27 POC Glucose 83 111 H 116 H 05/11/17 05/11/17 05/11/17 21:36 21:12 16:24 POC Glucose 127 H 57 L* 77 Phys Exam - Physical Examination HEENT: PERRLA, moist MMs Neck: no JVD, supple Respiratory: no wheezing, no rales rhonchi++ Cardiovascular: RRR, no significant murmur Gastrointestinal: soft, no distention, positive bowel sounds Musculoskeletal: no edema, pulses present Neurological: non-focal, moves all 4 limbs Psychiatric: A&O x 3 Dx/Plan (1) UTI (urinary tract infection) Status: Acute Qualifiers: Urinary tract infection type: acute cystitis Hematuria presence: without hematuria Qualified Code(s): N30.00 - Acute cystitis without hematuria (2) Bacteremia Code(s): R78.81 - BACTEREMIA Status: Acute Comment: e.coli (3) Decubitus ulcer of sacral area Status: Acute Qualifiers: Pressure ulcer stage: stage 3 Qualified Code(s): L89.153 - Pressure ulcer of sacral region, stage 3 (4) Encephalopathy acute Code(s): G93.40 - ENCEPHALOPATHY, UNSPECIFIED Status: Resolved (5) Sepsis with acute organ dysfunction Code(s): A41.9 - SEPSIS, UNSPECIFIED ORGANISM; R65.20 - SEVERE SEPSIS WITHOUT SEPTIC SHOCK Status: Acute (6) Diabetes type 2, controlled Code(s): E11.9 - TYPE 2 DIABETES MELLITUS WITHOUT COMPLICATIONS Status: Chronic Qualifiers: Diabetes mellitus complication status: with unspecified complications Diabetes mellitus mcfp insulin use: without termite helper use Qualified Code( s): E11.8 - Type 2 diabetes mellitus with unspecified complications (7) HTN (hypertension) Code(s): I10 - ESSENTIAL (PRIMARY) HYPERTENSION Status: Chronic Qualifiers: Hypertension type: essential hypertension Qualified Code(s): I10 - Essential (primary) hypertension (8) Obesity (BMI 30-39.9) Code(s): E66.9 - OBESITY, UNSPECIFIED Status: Chronic (9) Parkinson disease Code(s): G20 - PARKINSON'S DISEASE Status: Chronic (10) Paroxysmal atrial fibrillation Code(s): I48.0 - PAROXYSMAL ATRIAL FIBRILLATION Status: Chronic Comment: on xarelto (11) Physical deconditioning Code(s): R53.81 - OTHER MALAISE Status: Chronic (12) MARY (acute kidney injury) Code(s): N17.9 - ACUTE KIDNEY FAILURE, UNSPECIFIED Status: Resolved (13) Volume overload Code(s): E87.70 - FLUID OVERLOAD, UNSPECIFIED Status: Acute - Plan diuresing well, has recieved so far 3 doses of iv lasix -: continue her home diet as before -: has chronic deconditioning -: is on ceftriaxone, dc steroids -: will need another 4 more doses of lasix prior to discharge * . Review of Systems - Medications/Allergies Allergies/Adverse Reactions: Allergies Allergy/AdvReac Type Severity Reaction Status Date / Time codeine Allergy Verified 05/06/17 12:57 Opioids Analgesics Allergy Uncoded 07/01/16 16:36 Medications: Current Medications Acetaminophen (Tylenol) 650 mg PO Q4H PRN PRN Reason: Headache/Fever or Pain Last Admin: 05/09/17 20:35 Dose: 650 mg Al Hydroxide/Mg Hydroxide (Maalox) 30 ml PO Q6H PRN PRN Reason: Heartburn or Indigestion Amiodarone HCl (Cordarone) 200 mg PO DAILY [facility] Last Admin: 05/12/17 08:40 Dose: Not Given Artificial Tears (Tears Naturale) 0 drop EA EYE PRN PRN PRN Reason: Dry Eyes Carbidopa/Levodopa (Sinemet 25-250) 1 tab PO TID [facility] Last Admin: 05/12/17 14:01 Dose: Not Given Dextrose/Water (Dextrose 50%) 25 gm SLOW IVP PRN PRN PRN Reason: Hypoglycemia Last Admin: 05/11/17 21:19 Dose: 25 gm Folic Acid (Folvite) 1 mg PO DAILY [facility] Last Admin: 05/12/17 08:40 Dose: Not Given Furosemide (Lasix) 40 mg SLOW IVP 0600,1400 [facility] Last Admin: 05/12/17 13:55 Dose: 40 mg Glucagon (Glucagon) 1 mg IM PRN PRN PRN Reason: Hypoglycemia Guaifenesin (Robitussin Sf) 200 mg PO Q4H PRN PRN Reason: Cough Hydralazine HCl (Apresoline) 10 mg SLOW IVP Q4H PRN PRN Reason: Systolic BP > 180 Dextrose/Water (D5w) 1,000 mls @ 0 mls/hr IV .Q0M PRN; As Directed PRN Reason: Hypoglycemia Ceftriaxone Sodium 1 gm/ (Sodium Chloride) 100 mls @ 200 mls/hr IVPB Q24HR [facility] Last Admin: 05/11/17 16:54 Dose: 100 mls Ibuprofen (Motrin) 400 mg PO Q8H PRN PRN Reason: Pain Insulin Human Lispro (Humalog) 0 units SC .MODERATE SLIDING SC PRN PRN Reason: Moderate Correctional Scale Insulin Human Lispro (Humalog) 0 units SC .BEDTIME SLIDING SC PRN PRN Reason: Bedtime Correctional Scale Loperamide HCl (Imodium) 2 mg PO PRN PRN PRN Reason: Diarrhea/Loose Stools Loratadine (Claritin) 10 mg PO DAILYPRN PRN PRN Reason: Sinus Symptoms Magnesium Hydroxide (Milk Of Magnesium) 30 ml PO DAILYPRN PRN PRN Reason: Constipation Methylprednisolone Sodium Succinate (Solu-Medrol) 20 mg IVP Q8HR [facility] Last Admin: 05/12/17 13:58 Dose: 20 mg Mineral Oil/White Petrolatum (Eucerin Cream) 0 gm TOP BIDPRN PRN PRN Reason: Dry Skin Morphine Sulfate (Morphine Sulfate) 2 mg SLOW IVP Q4H PRN PRN Reason: Chest Pain/BP Elevations Ondansetron HCl (Zofran Odt) 4 mg PO Q6H PRN PRN Reason: Nausea/Vomiting Ondansetron HCl (Zofran) 4 mg IVP Q6H PRN PRN Reason: Nausea/Vomiting Rasagiline Mesylate ([Azilect] 1 Mg) 0 each PO DAILY [facility] Pravastatin Sodium (Pravachol) 10 mg PO HS [facility] Last Admin: 05/12/17 05:48 Dose: Not Given Rivaroxaban (Xarelto) 15 mg PO QPM [facility] Last Admin: 05/12/17 05:47 Dose: Not Given Senna (Senokot) 2 tab PO HSPRN PRN PRN Reason: Constipation Sodium Chloride ([place] Nasal [place] 0.65%) 0 ml EA NARE QIDPRN PRN PRN Reason: Nasal Congestion Sodium Chloride (Flush - Normal Saline) 10 ml IVF Q12HR [facility] Last Admin: 05/12/17 08:40 Dose: 10 ml Sodium Chloride (Flush - Normal Saline) 10 ml IVF PRN PRN PRN Reason: Saline Flush Last Admin: 05/12/17 05:46 Dose: 10 ml Zolpidem Tartrate (Ambien) 5 mg PO HSPRN PRN PRN Reason: Insomnia
[2017-05-12] MEDS: cefTRIAXone\\ROCEPHIN 1 GM in Sodium Chloride 0.9% 100 ML IVPB SCH (17:11)
[2017-05-13] MEDS: Furosemide 40 MG/4 ML VIAL SLOW IVP SCH ×2 (04:59→13:57)
[2017-05-13] MEDS: Carbidopa/Levodopa 25-250 mg Tablet PO SCH ×3 (10:12→20:46)
[2017-05-13] MEDS: Folic Acid 1 MG TAB PO SCH (10:12)
[2017-05-13] MEDS: Ibuprofen 200 MG TAB PO PRN (11:47)
--- NOTE | 2017-05-13 16:14 | PDOC.PN ---
- Subjective Encounter Start Date: 05/13/17 Encounter Start Time: 13:00 Subjective: awake, no sob, feels better -: no headache or neck pain now - Objective Resuscitation Status: Resuscitation Status DNI:No Intubation MAR Reviewed: Yes Vital Signs & Weight: Vital Signs (12 hours) Temp Pulse Resp BP Pulse Ox 05/13/17 07:52 97.9 F 65 16 113/67 95 Weight Admit Weight 186 lb Weight 186 lb I&O: 05/12/17 05/13/17 05/14/17 06:59 06:59 06:59 Intake Total 110 450 120 Output Total 3400 1350 Balance -3290 -900 120 Result Diagrams: 05/12/17 05:04 05/12/17 05:04 Additional Labs: Accuchecks 05/13/17 05/13/17 05/12/17 11:02 04:49 20:44 POC Glucose 108 106 150 H 05/12/17 16:34 POC Glucose 119 H Phys Exam - Physical Examination HEENT: PERRLA, moist MMs Neck: no JVD, supple Respiratory: no wheezing, no rales Cardiovascular: RRR, no significant murmur Gastrointestinal: soft, non-tender, positive bowel sounds Musculoskeletal: no edema, pulses present Neurological: non-focal, moves all 4 limbs Psychiatric: A&O x 3 Dx/Plan (1) UTI (urinary tract infection) Status: Acute Qualifiers: Urinary tract infection type: acute cystitis Hematuria presence: without hematuria Qualified Code(s): N30.00 - Acute cystitis without hematuria (2) Bacteremia Code(s): R78.81 - BACTEREMIA Status: Acute Comment: e.coli (3) Decubitus ulcer of sacral area Status: Acute Qualifiers: Pressure ulcer stage: stage 3 Qualified Code(s): L89.153 - Pressure ulcer of sacral region, stage 3 (4) Encephalopathy acute Code(s): G93.40 - ENCEPHALOPATHY, UNSPECIFIED Status: Resolved (5) Sepsis with acute organ dysfunction Code(s): A41.9 - SEPSIS, UNSPECIFIED ORGANISM; R65.20 - SEVERE SEPSIS WITHOUT SEPTIC SHOCK Status: Acute (6) Diabetes type 2, controlled Code(s): E11.9 - TYPE 2 DIABETES MELLITUS WITHOUT COMPLICATIONS Status: Chronic Qualifiers: Diabetes mellitus complication status: with unspecified complications Diabetes mellitus terminal operations manager insulin use: without terminal operations manager use Qualified Code( s): E11.8 - Type 2 diabetes mellitus with unspecified complications (7) HTN (hypertension) Code(s): I10 - ESSENTIAL (PRIMARY) HYPERTENSION Status: Chronic Qualifiers: Hypertension type: essential hypertension Qualified Code(s): I10 - Essential (primary) hypertension (8) Obesity (BMI 30-39.9) Code(s): E66.9 - OBESITY, UNSPECIFIED Status: Chronic (9) Parkinson disease Code(s): G20 - PARKINSON'S DISEASE Status: Chronic (10) Paroxysmal atrial fibrillation Code(s): I48.0 - PAROXYSMAL ATRIAL FIBRILLATION Status: Chronic Comment: on xarelto (11) Physical deconditioning Code(s): R53.81 - OTHER MALAISE Status: Chronic (12) MARY (acute kidney injury) Code(s): N17.9 - ACUTE KIDNEY FAILURE, UNSPECIFIED Status: Resolved (13) Volume overload Code(s): E87.70 - FLUID OVERLOAD, UNSPECIFIED Status: Acute - Plan diuresing well -: continue iv lasix for another 2 doses -: is on cefriaxone for bacteremia -: upright cxr in am if stable -: labs in am * . Review of Systems - Medications/Allergies Allergies/Adverse Reactions: Allergies Allergy/AdvReac Type Severity Reaction Status Date / Time codeine Allergy Verified 05/06/17 12:57 Opioids Analgesics Allergy Uncoded 07/01/16 16:36 Medications: Current Medications Acetaminophen (Tylenol) 650 mg PO Q4H PRN PRN Reason: Headache/Fever or Pain Last Admin: 05/09/17 20:35 Dose: 650 mg Al Hydroxide/Mg Hydroxide (Maalox) 30 ml PO Q6H PRN PRN Reason: Heartburn or Indigestion Amiodarone HCl (Cordarone) 200 mg PO DAILY [facility] Last Admin: 05/13/17 10:13 Dose: 200 mg Artificial Tears (Tears Naturale) 0 drop EA EYE PRN PRN PRN Reason: Dry Eyes Carbidopa/Levodopa (Sinemet 25-250) 1 tab PO TID [facility] Last Admin: 05/13/17 10:12 Dose: 1 tab Dextrose/Water (Dextrose 50%) 25 gm SLOW IVP PRN PRN PRN Reason: Hypoglycemia Last Admin: 05/11/17 21:19 Dose: 25 gm Folic Acid (Folvite) 1 mg PO DAILY [facility] Last Admin: 05/13/17 10:12 Dose: 1 mg Furosemide (Lasix) 40 mg SLOW IVP 0600,1400 [facility] Last Admin: 05/13/17 13:57 Dose: 40 mg Glucagon (Glucagon) 1 mg IM PRN PRN PRN Reason: Hypoglycemia Guaifenesin (Robitussin Sf) 200 mg PO Q4H PRN PRN Reason: Cough Hydralazine HCl (Apresoline) 10 mg SLOW IVP Q4H PRN PRN Reason: Systolic BP > 180 Dextrose/Water (D5w) 1,000 mls @ 0 mls/hr IV .Q0M PRN; As Directed PRN Reason: Hypoglycemia Ceftriaxone Sodium 1 gm/ (Sodium Chloride) 100 mls @ 200 mls/hr IVPB Q24HR [facility] Last Admin: 05/12/17 17:11 Dose: 100 mls Ibuprofen (Motrin) 400 mg PO Q8H PRN PRN Reason: Pain Last Admin: 05/13/17 11:47 Dose: 400 mg Insulin Human Lispro (Humalog) 0 units SC .MODERATE SLIDING SC PRN PRN Reason: Moderate Correctional Scale Insulin Human Lispro (Humalog) 0 units SC .BEDTIME SLIDING SC PRN PRN Reason: Bedtime Correctional Scale Loperamide HCl (Imodium) 2 mg PO PRN PRN PRN Reason: Diarrhea/Loose Stools Loratadine (Claritin) 10 mg PO DAILYPRN PRN PRN Reason: Sinus Symptoms Magnesium Hydroxide (Milk Of Magnesium) 30 ml PO DAILYPRN PRN PRN Reason: Constipation Mineral Oil/White Petrolatum (Eucerin Cream) 0 gm TOP BIDPRN PRN PRN Reason: Dry Skin Morphine Sulfate (Morphine Sulfate) 2 mg SLOW IVP Q4H PRN PRN Reason: Chest Pain/BP Elevations Ondansetron HCl (Zofran Odt) 4 mg PO Q6H PRN PRN Reason: Nausea/Vomiting Ondansetron HCl (Zofran) 4 mg IVP Q6H PRN PRN Reason: Nausea/Vomiting Rasagiline Mesylate ([Azilect] 1 Mg) 0 each PO DAILY [facility] Pravastatin Sodium (Pravachol) 10 mg PO HS [facility] Last Admin: 05/12/17 20:43 Dose: 10 mg Rivaroxaban (Xarelto) 15 mg PO QPM [facility] Last Admin: 05/12/17 20:43 Dose: 15 mg Senna (Senokot) 2 tab PO HSPRN PRN PRN Reason: Constipation Sodium Chloride ([place] Nasal [place] 0.65%) 0 ml EA NARE QIDPRN PRN PRN Reason: Nasal Congestion Sodium Chloride (Flush - Normal Saline) 10 ml IVF Q12HR [facility] Last Admin: 05/13/17 10:13 Dose: 10 ml Sodium Chloride (Flush - Normal Saline) 10 ml IVF PRN PRN PRN Reason: Saline Flush Last Admin: 05/13/17 13:57 Dose: 10 ml Zolpidem Tartrate (Ambien) 5 mg PO HSPRN PRN PRN Reason: Insomnia
[2017-05-13] MEDS: Acetaminophen 325 MG TAB PO PRN (16:43)
[2017-05-13] MEDS: cefTRIAXone\\ROCEPHIN 1 GM in Sodium Chloride 0.9% 100 ML IVPB SCH (16:44)
[2017-05-13] MEDS: Pravastatin Sodium 20 MG TAB PO SCH (20:46)
[2017-05-13] MEDS: Rivaroxaban 15 MG TAB PO SCH (20:46)
[2017-05-14] MEDS: Furosemide 40 MG/4 ML VIAL SLOW IVP SCH ×2 (05:27→15:48)
[2017-05-14 06:09] LABS: #Lymphocytes 1.2 thou/uL (1.20-3.40); #Monocytes 0.4 thou/uL (0.11-0.59); #Neutrophils 6.6 thou/uL (1.40-6.50); %Basophils 0.1 % (0.0-1.0); %Eosinophils 0.6 % (0.0-10.0); %Monocytes 4.6 % (0.0-10.0); Mean Platelet Volume 7.8 fL (7.4-10.4); Red Blood Cell (RBC) Count 4.79 mill/uL (4.20-5.40); White Blood Cell (WBC) Count 8.3 thou/uL (4.8-10.8)
[2017-05-14 06:27] LABS: Anion Gap 12 mmol/L (10-20); BUN (Urea Nitrogen) 19 mg/dL (9.8-20.1); Calc. Creatinine Clearance 74 mL/min (70-130); Calcium 8.7 mg/dL (7.8-10.44); Carbon Dioxide 25 mmol/L (23-31); Chloride 104 mmol/L (98-107); Estimated GFR-MDRD 81
[2017-05-14] MEDS: Folic Acid 1 MG TAB PO SCH (10:11)
[2017-05-14] MEDS: Carbidopa/Levodopa 25-250 mg Tablet PO SCH ×2 (10:11→15:51)
[2017-05-14 11:47] VITALS: TEMP 97.6
[2017-05-14] MEDS ORDERED: Rasagiline Mesylate [Azilect] 1 MG PO SCH (12:00)
[2017-05-14] MEDS: Ibuprofen 200 MG TAB PO PRN (15:52)
--- NOTE | 2017-05-14 16:05 | PDOC.PN ---
- Subjective Encounter Start Date: 05/14/17 Encounter Start Time: 12:40 Subjective: awake, no sob - Objective Resuscitation Status: Resuscitation Status DNI:No Intubation MAR Reviewed: Yes Vital Signs & Weight: Vital Signs (12 hours) Temp Pulse Resp BP Pulse Ox 05/14/17 11:47 97.6 F 69 16 120/69 97 05/14/17 08:00 97.6 F 69 16 05/14/17 07:54 98 F 60 16 135/71 93 L Weight Admit Weight 186 lb Weight 186 lb I&O: 05/13/17 05/14/17 05/15/17 06:59 06:59 06:59 Intake Total 450 940 Output Total 5118 025 6708 Balance -900 140 -2000 Result Diagrams: 05/14/17 05:50 05/14/17 05:50 Additional Labs: Accuchecks 05/14/17 05/14/17 05/13/17 11:46 05:21 20:13 POC Glucose 117 H 83 162 H 05/13/17 16:03 POC Glucose 120 H Phys Exam - Physical Examination HEENT: PERRLA, moist MMs Neck: no JVD, supple Respiratory: no wheezing, no rales Cardiovascular: RRR, no significant murmur Gastrointestinal: soft, non-tender, positive bowel sounds Musculoskeletal: no edema, pulses present Neurological: non-focal, moves all 4 limbs Dx/Plan (1) UTI (urinary tract infection) Status: Acute Qualifiers: Urinary tract infection type: acute cystitis Hematuria presence: without hematuria Qualified Code(s): N30.00 - Acute cystitis without hematuria (2) Bacteremia Code(s): R78.81 - BACTEREMIA Status: Acute Comment: e.coli (3) Decubitus ulcer of sacral area Status: Acute Qualifiers: Pressure ulcer stage: stage 3 Qualified Code(s): L89.153 - Pressure ulcer of sacral region, stage 3 (4) Encephalopathy acute Code(s): G93.40 - ENCEPHALOPATHY, UNSPECIFIED Status: Resolved (5) Sepsis with acute organ dysfunction Code(s): A41.9 - SEPSIS, UNSPECIFIED ORGANISM; R65.20 - SEVERE SEPSIS WITHOUT SEPTIC SHOCK Status: Acute (6) Diabetes type 2, controlled Code(s): E11.9 - TYPE 2 DIABETES MELLITUS WITHOUT COMPLICATIONS Status: Chronic Qualifiers: Diabetes mellitus complication status: with unspecified complications Diabetes mellitus long term care phlebotomist insulin use: without long term care phlebotomist use Qualified Code( s): E11.8 - Type 2 diabetes mellitus with unspecified complications (7) HTN (hypertension) Code(s): I10 - ESSENTIAL (PRIMARY) HYPERTENSION Status: Chronic Qualifiers: Hypertension type: essential hypertension Qualified Code(s): I10 - Essential (primary) hypertension (8) Obesity (BMI 30-39.9) Code(s): E66.9 - OBESITY, UNSPECIFIED Status: Chronic (9) Parkinson disease Code(s): G20 - PARKINSON'S DISEASE Status: Chronic (10) Paroxysmal atrial fibrillation Code(s): I48.0 - PAROXYSMAL ATRIAL FIBRILLATION Status: Chronic Comment: on xarelto (11) Physical deconditioning Code(s): R53.81 - OTHER MALAISE Status: Chronic (12) MARY (acute kidney injury) Code(s): N17.9 - ACUTE KIDNEY FAILURE, UNSPECIFIED Status: Resolved (13) Volume overload Code(s): E87.70 - FLUID OVERLOAD, UNSPECIFIED Status: Resolved - Plan home dose of lasix -: hemostable -: d/w daughter at bedside -: dc to NH -: augmentin for ecoli bacteremia x 8 days * .
[2017-05-14 16:20] VITALS: BP 130/77
--- NOTE | 2017-05-14 20:47 | DIS ---
DATE OF ADMISSION: 05/06/2017 DATE OF DISCHARGE: 05/14/2017 DISCHARGE DISPOSITION: To [facility]. PRIMARY DISCHARGE DIAGNOSES: Sepsis with Escherichia coli bacteremia, invasive urinary tract infect ion with indwelling Turcios catheter. SECONDARY DISCHARGE DIAGNOSES: Chronic sacral decubitus; initial encephalopathy has resolved due to above; diabetes mellitus type 2; hypertension; obesity; Parkinson's disease; paroxysmal atrial fibr illation; deconditioning with bed bound status; acute kidney injury, resolved; volume overload due t o fluid resuscitation with sepsis, resolved. PROCEDURES DONE DURING HOSPITALIZATION: The patient has had CT brain done on the day of admission, which showed no acute intracranial process. CT of the abdomen and pelvis done on 05/08/2017 showed no urinary tract obstruction or calcification. Has had 2 subsequent chest x-ray done, which showed pleural effusion. Blood cultures 2/2 grew E. coli resistant to quinolones, but sensitive to all oth er organisms. Urine culture grew Proteus mirabilis and E. coli. Discharge white count of 8 with H\ T\H of 14 and 46, platelet count of 382. Admitting white count was 12, discharge BUN and creatinine is 19 and 0.8. BNP on the day of discharge is 138, BNP of 657 on 05/11/2017. Initial BUN and crea tinine on the day of admission was 37 and 1.4 with sodium of 144. DISCHARGE MEDICATIONS: Augmentin 875 mg p.o. twice daily for another 8 days, amiodarone 200 mg p.o. daily, Carbidopa/levodopa 25/250 mg 1 tab p.o. 3 times daily, Pepcid 20 mg p.o. at bedtime, folic a fanta 1 mg p.o. daily, Lasix 40 mg twice daily, MiraLax 17 grams daily, Pravachol 10 mg at bedtime, Ra sagiline 1 mg p.o. daily, Xarelto 15 mg p.o. q.p.m., Glipizide 5 mg p.o. q.a.m. ALLERGIES: Allergic to CODEINE. INPATIENT CONSULTS: Dr. Melgar for Infectious Disease. BRIEF COURSE DURING HOSPITALIZATION: Patient initially got admitted on the 5th after she was transf erred from [facility] for confusion and weakness. Patient was found to have had urinary tract inf ection with indwelling Turcios catheter. Blood cultures came back positive for E. coli. This is resi stant to quinolones. She was on ceftriaxone all through her stay. She has had consultation with Dr Annie Melgar. The patient was initially fluid resuscitated for her sepsis. [facility] the patient had volume overload and had to be diuresed gently. At the time of discharge, the p atient is hemodynamically stable. She needs to continue Augmentin for another 8 days to complete a total course of 16 days. She is hemodynamically stable. Please note, the patient is bed bound and has chronic Turcios catheter. She has multiple medical issues as well. A total of 35 minutes was spent on discharge plan. Please see a [id number] documentation on [facility] for the day of discharge.
== END 2017-05-14 17:26 | DRG 698 ==
LOC: ERS 08:16 → T4-B 11:01
PROVIDERS: ADMIT Internal Medicine; ATTEND Internal Medicine
DX: T83.511A Infection and inflammatory reaction due to indwelling urethral catheter, initial encounter (principal); A41.51 Sepsis due to Escherichia coli [E. coli]; G93.41 Metabolic encephalopathy; N17.9 Acute kidney failure, unspecified; L89.153 Pressure ulcer of sacral region, stage 3; K50.90 Crohn's disease, unspecified, without complications; I48.0 Paroxysmal atrial fibrillation; G20 Parkinson's disease; I10 Essential (primary) hypertension; R53.2 Functional quadriplegia; R65.20 Severe sepsis without septic shock; N30.00 Acute cystitis without hematuria; Z96.0 Presence of urogenital implants; Z79.01 Long term (current) use of anticoagulants; E11.9 Type 2 diabetes mellitus without complications; K21.9 Gastro-esophageal reflux disease without esophagitis; F41.9 Anxiety disorder, unspecified; F32.9 Major depressive disorder, single episode, unspecified; Z74.01 Bed confinement status; Z88.5 Allergy status to narcotic agent; Z79.4 Long term (current) use of insulin; E78.5 Hyperlipidemia, unspecified; E66.9 Obesity, unspecified; Z68.35 Body mass index [BMI] 35.0-35.9, adult; N31.9 Neuromuscular dysfunction of bladder, unspecified; Z66 Do not resuscitate; B96.4 Proteus (mirabilis) (morganii) as the cause of diseases classified elsewhere; Z16.23 Resistance to quinolones and fluoroquinolones; E87.6 Hypokalemia; I25.10 Atherosclerotic heart disease of native coronary artery without angina pectoris
CPT/HCPCS: 36415; 36416; 70450; 71010; 74176; 80048; 80053; 81003; 81015; 83605; 83880; 85025; 87040; 87077; 87086; 87149; 87186; 96365; 96367; A4216; G8996-GN-CJ; G8997-GN-CI; J0696; J1940; J2185; J2270; J2543; J2920; J3370; J7050

== ENCOUNTER 2017-05-26 09:17 | Outpatient (CLI) | payer MEDICAID, MEDICARE | END 2017-05-26 09:18 | disposition home or self-care (01) | LOC: WCC 09:17 | PROVIDERS: ATTEND Family Medicine | DX: L89.159 Pressure ulcer of sacral region, unspecified stage (principal) | CPT/HCPCS: 36416; 97602 ==

== ENCOUNTER 2017-06-02 14:17 | Outpatient (CLI) | payer MEDICARE, MEDICAID ==
[2017-06-02] MEDS ORDERED: Sodium Chloride 0.9% 15 ML NEB ONE (17:00)
[2017-06-02] MEDS ORDERED: Lidocaine 2% Jelly 5 ML TUBE ONE (17:00)
--- NOTE | 2017-06-02 18:57 | HP ---
DATE OF SERVICE: 06/02/2017 HISTORY OF PRESENT ILLNESS: Ms. Maggie Pierson is a 81-year-old accompanied by her daughter who p resents to the Wound Center for evaluation of 2 sacral decubitus ulcerations. The patient's daughte r states that Ms. Pierson resides at [facility] and a sacral pressure ulceration was first noted 2 months prior to the patient's admission to [facility]. The patient was admit roque to [facility] on 05/06/2017 with encephalopathy and an urinary tract infe ction. The patient's daughter states that at [facility], the ulceration was treated with \\\\"butt p aste.\\\\" She states that after admission to [facility] for the urinary tract infection within 3 days, the decubitus ulceration had markedly increased in its dimensions. The pa jonathon was discharged from [facility] on 05/14/2017. The patient's daughter s tates that at this time, arrangements were made for the patient to be seen in the Wound Center for f urther evaluation and treatment. PAST MEDICAL HISTORY: 1. Hypertension. 2. Osteoarthritis. 3. Diabetes mellitus. 4. Parkinson. 5. Conn's syndrome. 6. Chronic kidney disease. 7. Paroxysmal atrial fibrillation. 8. Gastroesophageal reflux disease. 9. History of transient ischemic attack. 10. Dementia. 11. Quadriparesis. PAST SURGICAL HISTORY: 1. Appendectomy. 2. Back surgery. MEDICATIONS: 1. Amiodarone. 2. Rasagiline. 3. D-mannose. 4. Famotidine. 5. Folic acid. 6. Glipizide. 7. Lasix. 8. MiraLax. 9. Pravastatin. 10. Sinemet. 11. Vitamin C. 12. Xarelto. ALLERGIES: OPIOID ANALGESICS. SOCIAL HISTORY: Negative for current or previous tobacco or ETOH use. FAMILY HISTORY: Significant for diabetes mellitus. The patient's mother and sister were both diagn osed with diabetes mellitus. Family history is also significant for coronary artery disease. The p lety's sister was diagnosed with coronary artery disease. PHYSICAL EXAMINATION: VITAL SIGNS: Temperature 98.0, pulse 71, respirations 17, blood pressure 126/63. GENERAL: A 81-year-old female lying on table in examination room, in no acute distress. HEENT: Normocephalic, atraumatic. NECK: No nuchal rigidity. CHEST: Clear to auscultation. CARDIAC: Regular rate and rhythm. ABDOMEN: Soft. BACK: Two sacral pressure ulcerations are present, which measure approximately 3.0 x 2.2 cm and 3.0 x 2.5 cm. Granulation tissue is present within the margins of each wound. Nonviable tissue presen t within the margins of each wound was debrided with an excisional full-thickness debridement. No p urulent drainage is associated with either wound. No erythema of the skin surrounding either wound is appreciated. No maceration of the skin of the periwound of either wound is noted. EXTREMITIES: No clubbing or cyanosis. ASSESSMENT AND PLAN: 1. Pressure ulcerations of sacrum as described above. Dressing changes of Santyl will be initiated today. These dressing changes are to be performed on a daily basis after cleansing and irrigation. Orders will also be transmitted to [facility] for offloading of the pressure ulcerations with pos ition changes q.2 hours in addition albumin and prealbumin levels will be obtained. No antibiotics will be prescribed today based upon the appearance of the wounds. I have explained to the patient's daughter that consideration will also need to be given to treatment with negative pressure therapy in order to achieve healing of the ulcerations in a timely manner. The patient's daughter understan ds and is in agreement with the preceding treatment plan. 2. Hypertension. 3. Osteoarthritis. 4. Diabetes mellitus. Accu-Cheks will be obtained at the time of the patient's clinic visits. The patient's daughter has been told that for optimal wound healing, the patient's blood glucoses shoul d remain below 150. 5. Parkinson. 6. Conn's syndrome. 7. Chronic kidney disease. 8. Paroxysmal atrial fibrillation. 9. Gastroesophageal reflux disease. 10. History of transient ischemic attack. 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 12. Quadriparesis.
== END 2017-06-02 14:18 | disposition home or self-care (01) ==
LOC: WCC 14:17
PROVIDERS: ATTEND Family Medicine
DX: L89.159 Pressure ulcer of sacral region, unspecified stage (principal); E11.622 Type 2 diabetes mellitus with other skin ulcer; E11.22 Type 2 diabetes mellitus with diabetic chronic kidney disease; G20 Parkinson's disease; E26.01 Conn's syndrome; I12.9 Hypertensive chronic kidney disease with stage 1 through stage 4 chronic kidney disease, or unspecified chronic kidney disease; N18.9 Chronic kidney disease, unspecified; I48.0 Paroxysmal atrial fibrillation; K21.9 Gastro-esophageal reflux disease without esophagitis; F01.50 Vascular dementia, unspecified severity, without behavioral disturbance, psychotic disturbance, mood disturbance, and anxiety; G82.50 Quadriplegia, unspecified
CPT/HCPCS: 11042; 97139; G0463; 99204; A4218

== ENCOUNTER 2017-06-16 14:26 | Outpatient (CLI) | payer MEDICARE, MEDICAID ==
--- NOTE | 2017-06-16 12:31 | PRG ---
DATE OF SERVICE: 06/16/2017 HISTORY: Ms. Maggie Pierson is a 82-year-old accompanied by her daughter, who presents to the Wound Center for evaluation of 2 sacral decubitus ulcerations. The patient's daughter previously stated that Ms. Pierson resides at [facility] and a sacral pressure ulceration was first noted 2 months prior to the patient's admission to [facility]. The patient was admitted to [facility] on 05/06/2017 with encephalopathy and urinary tract infection. The patient's daughter stated that at [facility], ulceration was treated with "butt paste." The patient stated that after admission to [facility] for the urinary tract infection within 3 days, the decubitus ulceration have markedly increased in its dimensions. The patient was discharged from [facility] on 05/14/2017. The patient's daughter stated that at this time, arrangements were made for the patient to be seen in the Wound Center for further evaluation and treatment. After being seen in the Wound Center, dressing changes of Santyl were initiated. These dressing changes were to be performed on a daily basis after cleansing and irrigation. More recently, the patient has been receiving dressing changes of Medihoney. PHYSICAL EXAMINATION: VITAL SIGNS: Temperature 98.0, pulse 72, respirations 17, blood pressure 150/ 69. Accu-Chek 121. BACK: Two sacral pressure ulcerations are present, which measure approximately 1.7 x 1.8 cm and 2.5 x 2.2 cm. Granulation tissue is present within the margins of each wound. Nonviable tissue present within the margins of each wound was debrided with an excisional full-thickness debridement. No purulent drainage is associated with either wound. No erythema of the skin surrounding either wound is appreciated. No maceration of the skin of the periwound of either wound is noted. ASSESSMENT AND PLAN: 1. Pressure ulcerations of the sacrum as described above. Arrangements will be made for the initiation of negative pressure therapy with dressing changes of the wound VAC 3 times per week at [facility]. Dressing changes of Medihoney and gauze are to be performed on a daily basis after cleansing and irrigation until the wound VAC becomes available. The patient's daughter understands and is in agreement with the preceding treatment plan. Orders will again be transmitted to [facility] for offloading of the pressure ulceration with position changes q.2 hours. In addition, albumin and prealbumin levels will be obtained. I will see Ms. Pierson 2 weeks after negative pressure therapy has been initiated. 2. Hypertension. 3. Osteoarthritis. 4. Diabetes mellitus. The patient's Accu-Chek in clinic today is 121. The patient's daughter has been told that for optimal wound healing, the patient's blood glucoses should remain below 150. 5. Parkinson. 6. Conn's syndrome. 7. Chronic kidney disease. 8. Paroxysmal atrial fibrillation. 9. Gastroesophageal reflux disease. 10. History of transient ischemic attack. 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 12. Quadriparesis. MTDD
== END 2017-06-16 14:27 | disposition home or self-care (01) ==
LOC: WCC 14:26
PROVIDERS: ATTEND Family Medicine
DX: E11.622 Type 2 diabetes mellitus with other skin ulcer (principal); L89.159 Pressure ulcer of sacral region, unspecified stage; E11.22 Type 2 diabetes mellitus with diabetic chronic kidney disease; I12.9 Hypertensive chronic kidney disease with stage 1 through stage 4 chronic kidney disease, or unspecified chronic kidney disease; N18.9 Chronic kidney disease, unspecified; M19.90 Unspecified osteoarthritis, unspecified site; G20 Parkinson's disease; I48.0 Paroxysmal atrial fibrillation; K21.9 Gastro-esophageal reflux disease without esophagitis; G82.50 Quadriplegia, unspecified; E26.01 Conn's syndrome; F01.50 Vascular dementia, unspecified severity, without behavioral disturbance, psychotic disturbance, mood disturbance, and anxiety; Z86.73 Personal history of transient ischemic attack (TIA), and cerebral infarction without residual deficits
CPT/HCPCS: 11042

== ENCOUNTER 2017-06-30 11:39 | Outpatient (CLI) | payer MEDICARE, MEDICAID ==
--- NOTE | 2017-06-30 17:25 | PRG ---
DATE OF SERVICE: 06/30/2017 HISTORY: Ms. Vivi Pierson is a very pleasant 82-year-old accompanied by her daughter, who presen ts to the Wound Center for evaluation of 2 sacral decubitus ulcerations. The patient's daughter prev iously stated that Ms. Pierson resides at [facility], and sacral pressure ulceration was first noted 2 months prior to the patient's admission to [facility]. The patient was adm itted to [facility] on 05/06/2017 with encephalopathy and urinary tract infect ion. The patient's daughter stated that at [facility], the ulceration was treated with "butt paste. The patient's daughter stated that after admission to [facility] for the uri nary tract infection within 3 days, the decubitus ulceration had markedly increased in its dimensions . The patient was discharged from [facility] on 05/14/2017. The patient's da ughter stated that at this time, arrangements were made for the patient to be seen in the [facility] for further evaluation and treatment. After being seen in the Wound Center, dressing changes of Sa ntyl were initiated. These dressing changes were to be performed on a daily basis after cleansing an d irrigation. More recently, the patient has been receiving dressing changes of Medihoney. PHYSICAL EXAMINATION: VITAL SIGNS: Temperature 98.4, pulse 69, respirations 20, blood pressure 138/64. Accu-Chek 131. BACK: Two sacral pressure ulcerations are present, which measure approximately 2.0 x 1.9 cm and 1.0 x 0.8 cm. Granulation tissue is present within the margins of each wound. Nonviable tissue present within the margins of each wound was debrided with an excisional full-thickness debridement with the use of a curet. No purulent drainage is associated with either wound. No erythema of the skin surro unding either wound is appreciated. No maceration of the skin of the periwound of either wound is no roque. ASSESSMENT AND PLAN: 1. Pressure ulcerations of the sacrum as described above. The dimensions of each ulceration have de creased since the patient's last visit. Dressing changes of Medihoney and gauze will be continued on a daily basis after cleansing and irrigation at [facility]. The patient's daughter understands and is in agreement with the preceding treatment plan. Orders will again be transmitted to [facility] for offloading of the pressure ulcerations with position changes q.2 hours. In addition, albumin and prealbumin levels will be obtained. I will see Ms. Jay again in two weeks. 2. Hypertension. 3. Osteoarthritis. 4. Diabetes mellitus. The patient's Accu-Chek in clinic today is 131. The patient's daughter has ok cee told that for optimal wound healing, the patient's blood glucoses should remain below 150. 5. Parkinson's. 6. Conn's syndrome. 7. Chronic kidney disease. 8. Paroxysmal atrial fibrillation. 9. Gastroesophageal reflux disease. 10. History of transient ischemic attack. 11. Multi-infarct dementia. 12. Quadriparesis.
[2017-06-30] MEDS ORDERED: Sodium Chloride 0.9% 15 ML NEB ONE (17:47)
[2017-06-30] MEDS ORDERED: Lidocaine 2% Jelly 5 ML TUBE ONE (17:47)
== END 2017-06-30 11:40 | disposition home or self-care (01) ==
LOC: WCC 11:39
PROVIDERS: ATTEND Family Medicine
DX: E11.622 Type 2 diabetes mellitus with other skin ulcer (principal); L89.519 Pressure ulcer of right ankle, unspecified stage; I12.9 Hypertensive chronic kidney disease with stage 1 through stage 4 chronic kidney disease, or unspecified chronic kidney disease; E11.22 Type 2 diabetes mellitus with diabetic chronic kidney disease; N18.9 Chronic kidney disease, unspecified; G20 Parkinson's disease; I48.0 Paroxysmal atrial fibrillation; E26.01 Conn's syndrome; K21.9 Gastro-esophageal reflux disease without esophagitis; F01.50 Vascular dementia, unspecified severity, without behavioral disturbance, psychotic disturbance, mood disturbance, and anxiety; G82.50 Quadriplegia, unspecified; Z86.73 Personal history of transient ischemic attack (TIA), and cerebral infarction without residual deficits
CPT/HCPCS: 11042; 36416; A4218

== ENCOUNTER 2017-07-14 10:38 | Outpatient (CLI) | payer MEDICARE, MEDICAID ==
[2017-07-14] MEDS ORDERED: Sodium Chloride 0.9% 15 ML NEB ONE (10:51)
[2017-07-14] MEDS ORDERED: Lidocaine 2% Jelly 5 ML TUBE ONE (10:51)
--- NOTE | 2017-07-14 19:28 | PRG ---
DATE OF SERVICE: 07/14/2017 HISTORY: Ms. Maggie Pierson is a very pleasant 82-year-old, accompanied by her daughter who presen ts to the Wound Center for evaluation of 2 sacral decubitus ulcerations. After being seen in [facility], dressing changes of Santyl were initiated. These dressing changes were to be performed on a daily basis after cleansing and irrigation. More recently, the patient has been receiving dressin g changes of Medihoney. PHYSICAL EXAMINATION: VITAL SIGNS: Temperature 97.7, pulse 72, respirations 16, blood pressure 155/67. Accu-Chek 102. BACK: Only 1 sacral pressure ulceration remains which measures approximately 1.5 x 0.7 cm. Granulat ion tissue is present within the wound margins. Nonviable tissue present within the wound margins wa s debrided with an excisional full-thickness debridement with the use of a curet. No purulent draina ge is associated with the wound. No erythema of the skin surrounding the wound is present. No macer ation of the skin of the periwound is noted. ASSESSMENT AND PLAN: 1. Pressure ulceration of the sacrum as described above. Dressing changes of Medihoney and gauze wi ll be continued on a daily basis after cleansing and irrigation at [facility]. The patient's daught er understands and is in agreement with the preceding treatment plan. I will see Ms. Pierson again i n 4 weeks if the wound is still present at this time. 2. Hypertension. 3. Osteoarthritis. 4. Diabetes mellitus. The patient's Accu-Chek in clinic today is 102. The patient's daughter has ok cee told that for optimal wound healing, the patient's blood glucoses should remain below 150. 5. Parkinson's. 6. Conn syndrome. 7. Chronic kidney disease. 8. Paroxysmal atrial fibrillation. 9. Gastroesophageal reflux disease. 10. History of transient ischemic attack. 11. Multi-infarct dementia. 12. Quadriparesis.
== END 2017-07-14 10:39 | disposition home or self-care (01) ==
LOC: WCC 10:38
PROVIDERS: ATTEND Family Medicine
DX: L89.159 Pressure ulcer of sacral region, unspecified stage (principal); M19.90 Unspecified osteoarthritis, unspecified site; I12.9 Hypertensive chronic kidney disease with stage 1 through stage 4 chronic kidney disease, or unspecified chronic kidney disease; E11.22 Type 2 diabetes mellitus with diabetic chronic kidney disease; N18.9 Chronic kidney disease, unspecified; G20 Parkinson's disease; I48.0 Paroxysmal atrial fibrillation; K21.9 Gastro-esophageal reflux disease without esophagitis; F01.50 Vascular dementia, unspecified severity, without behavioral disturbance, psychotic disturbance, mood disturbance, and anxiety; E26.01 Conn's syndrome; G82.50 Quadriplegia, unspecified
CPT/HCPCS: 11042; 36416; A4218

== ENCOUNTER 2017-08-11 11:11 | Outpatient (CLI) | payer MEDICARE ==
[~2017-08-11 11:11] MED LIST: Sodium Chloride 0.9% 15 ML NEB ONE
--- NOTE | 2017-08-11 17:45 | PRG ---
DATE OF SERVICE: 08/11/2017 HISTORY: Ms. Maggie Pierson is a very pleasant 82-year-old, who presents to the Wound Center for e valuation of a pressure ulceration of the sacrum. After being seen in the Wound Center, dressing jorge nges of Santyl were initiated. These dressing changes were to be performed on a daily basis after cl eansing and irrigation. In lieu of Santyl, the patient received dressing changes of Medihoney and ga uze on a daily basis after cleansing and irrigation. Ms. Pierson has no complaints today. She denie s any fever or chills. PHYSICAL EXAMINATION: VITAL SIGNS: Temperature 98.2, pulse 71, respirations 17, blood pressure 152/68. Accu-Chek 87. BACK: A small sacral pressure ulceration remains. Granulation tissue is present within the wound ma rgins. Nonviable tissue present within the wound margins was debrided with an excisional full-thickn ess debridement. No purulent drainage is associated with the wound. No erythema of the skin surroun ding the wound is present. No maceration of the skin of the periwound is noted. ASSESSMENT AND PLAN: 1. Pressure ulceration of the sacrum as described above. Dressing changes of Arglaes powder and bor dered gauze are to be performed on a daily basis after cleansing and irrigation at [facility]. I wi ll see Ms. Pierson again in two weeks if her wound is still present at this time. 2. Hypertension. 3. Osteoarthritis. 4. Diabetes mellitus. The patient's Accu-Chek in clinic today is 87. The patient has been told yg t for optimal wound healing, her blood glucoses should remain below 150. 5. Parkinson's. 6. Conn's syndrome. 7. Chronic kidney disease. 8. Paroxysmal atrial fibrillation. 9. Gastroesophageal reflux disease. 10. History of transient ischemic attack. 11. Multi-infarct dementia. 12. Quadriparesis.
== END 2017-08-11 11:12 | disposition home or self-care (01) ==
LOC: WCC 11:11
PROVIDERS: ATTEND Family Medicine
DX: E11.622 Type 2 diabetes mellitus with other skin ulcer (principal); L89.159 Pressure ulcer of sacral region, unspecified stage; I12.9 Hypertensive chronic kidney disease with stage 1 through stage 4 chronic kidney disease, or unspecified chronic kidney disease; E11.22 Type 2 diabetes mellitus with diabetic chronic kidney disease; N18.9 Chronic kidney disease, unspecified; M19.90 Unspecified osteoarthritis, unspecified site; G20 Parkinson's disease; E26.01 Conn's syndrome; I48.0 Paroxysmal atrial fibrillation; K21.9 Gastro-esophageal reflux disease without esophagitis; F01.50 Vascular dementia, unspecified severity, without behavioral disturbance, psychotic disturbance, mood disturbance, and anxiety; G82.50 Quadriplegia, unspecified
CPT/HCPCS: 11042; A4218

== ENCOUNTER 2017-08-25 10:53 | Outpatient (CLI) | payer MEDICARE ==
--- NOTE | 2017-08-25 12:35 | PRG ---
DATE OF SERVICE: 08/25/2017 HISTORY: Ms. Maggie Pierson is a very pleasant 82-year-old, who presents to the Wound Center for e valuation of a pressure ulceration of the sacrum. After being seen in the Wound Center, dressing jorge nges of Santyl were initiated. These dressing changes were to be performed on a daily basis after cl eansing and irrigation. In lieu of Santyl, the patient received dressing changes of Medihoney and ga uze on a daily basis after cleansing and irrigation. The patient has also received dressing changes of Arglaes powder for her sacral wound. PHYSICAL EXAMINATION: VITAL SIGNS: Temperature 97.5 and pulse 72, respirations 18, blood pressure 185/74. Accu-Chek 120. BACK: A small pressure ulceration of the sacrum remains. The dimensions of the wound are approximat [place] 1.4 x 0.7 cm. Granulation tissue is present within the wound margins. Nonviable tissue present within the wound margins was debrided with an excisional full-thickness debridement. No purulent tania inage is associated with the wound. No erythema of the skin surrounding the wound is present. No ma ceration of the skin of the periwound is noted. ASSESSMENT AND PLAN: 1. Pressure ulceration of the sacrum as described above. Dressing changes of Arglaes powder will be discontinued. Dressing changes of Multidex powder and bordered gauze will be initiated today. Thes e dressing changes are to be performed on a daily basis after cleansing and irrigation at [facility] . I will see Ms. Pierson again in 2 weeks if her wound is still present at this time. 2. Hypertension. 3. Osteoarthritis. 4. Diabetes mellitus. The patient's Accu-Chek in clinic today is 120. The patient has been told th at for optimal wound healing, her blood glucoses should remain below 150. 5. Parkinson's. 6. Conn syndrome. 6. Chronic kidney disease. 7. Paroxysmal atrial fibrillation. 8. Gastroesophageal reflux disease. 9. History of transient ischemic attack. 10. Multi-infarct dementia. 11. Quadriparesis.
[2017-08-27] MEDS ORDERED: Sodium Chloride 0.9% 15 ML NEB ONE (15:58)
== END 2017-08-25 10:54 | disposition home or self-care (01) ==
LOC: WCC 10:53
PROVIDERS: ATTEND Family Medicine
DX: L89.159 Pressure ulcer of sacral region, unspecified stage (principal); E11.622 Type 2 diabetes mellitus with other skin ulcer; M19.90 Unspecified osteoarthritis, unspecified site; G20 Parkinson's disease; E26.01 Conn's syndrome; I12.9 Hypertensive chronic kidney disease with stage 1 through stage 4 chronic kidney disease, or unspecified chronic kidney disease; E11.22 Type 2 diabetes mellitus with diabetic chronic kidney disease; N18.9 Chronic kidney disease, unspecified; I48.91 Unspecified atrial fibrillation; K21.9 Gastro-esophageal reflux disease without esophagitis; Z86.73 Personal history of transient ischemic attack (TIA), and cerebral infarction without residual deficits; F01.50 Vascular dementia, unspecified severity, without behavioral disturbance, psychotic disturbance, mood disturbance, and anxiety; G82.50 Quadriplegia, unspecified
CPT/HCPCS: 11042

== ENCOUNTER 2017-09-29 10:21 | Outpatient (CLI) | payer MEDICARE, MEDICAID ==
--- NOTE | 2017-09-29 12:18 | PRG ---
DATE OF SERVICE: 09/29/2017 HISTORY: Ms. Maggie Pierson is a very pleasant 82-year-old who presents to the Wound Center for evaluation of a pressure ulceration of the sacrum. After being seen in the Wound Center, dressing changes of Santyl were initiated. These dressing changes were to be performed on a daily basis after cleansing and irrigation. In lieu of Santyl, the patient received dressing changes of Medihoney and gauze on a daily basis after cleansing and irrigation. The patient has also received dressing changes of Arglaes powder for her sacral wound. At the time of the patient's last visit, dressing changes of Multidex powder and bordered gauze were initiated. These dressing changes were to be performed on a daily basis after cleansing and irrigation at [facility]. PHYSICAL EXAMINATION: VITAL SIGNS: Temperature 98.1, pulse 76, respirations 18, blood pressure 163/ 71. Accu-Chek 99. BACK: A small pressure ulceration of the sacrum remains. Granulation tissue is present within the wound margins. Nonviable tissue present within the wound margins was debrided with an excisional full-thickness debridement. No purulent drainage is associated with the wound. No erythema of the skin surrounding the wound is present. No maceration of the skin of the periwound is noted. ASSESSMENT AND PLAN: 1. Pressure ulceration of the sacrum as described above. Dressing changes of Multidex powder and bordered gauze or alternatively bordered gauze alone are to be performed on a daily basis after cleansing and irrigation at [facility]. I will see Ms. Pierson again in 3 weeks if her wound is still present at this time. 2. Hypertension. 3. Osteoarthritis. 4. Diabetes mellitus. The patient's Accu-Chek in clinic today is 99. The patient has been told that for optimal wound healing, her blood glucoses should remain below 150. 5. Parkinson's. 6. Conn's syndrome. 7. Chronic kidney disease. 8. Paroxysmal atrial fibrillation. 9. Gastroesophageal reflux disease. 10. History of transient ischemic attack. 11. Multi-infarct dementia. 12. Quadriparesis. [facility]
[2017-09-29] MEDS ORDERED: Sodium Chloride 0.9% 15 ML NEB ONE (14:32)
== END 2017-09-29 10:22 | disposition home or self-care (01) ==
LOC: WCC 10:21
PROVIDERS: ATTEND Family Medicine
DX: E11.622 Type 2 diabetes mellitus with other skin ulcer (principal); E11.22 Type 2 diabetes mellitus with diabetic chronic kidney disease; L89.159 Pressure ulcer of sacral region, unspecified stage; I12.9 Hypertensive chronic kidney disease with stage 1 through stage 4 chronic kidney disease, or unspecified chronic kidney disease; N18.9 Chronic kidney disease, unspecified; G20 Parkinson's disease; E26.01 Conn's syndrome; I48.0 Paroxysmal atrial fibrillation; K21.9 Gastro-esophageal reflux disease without esophagitis; G82.50 Quadriplegia, unspecified; F01.50 Vascular dementia, unspecified severity, without behavioral disturbance, psychotic disturbance, mood disturbance, and anxiety; M19.90 Unspecified osteoarthritis, unspecified site; Z86.73 Personal history of transient ischemic attack (TIA), and cerebral infarction without residual deficits
CPT/HCPCS: 11042; A4218

== ENCOUNTER 2017-11-16 09:03 | Inpatient (IN) | payer MEDICARE, MEDICAID ==
[2017-11-16 10:07] LABS: #Eosinphils 0.1 thou/uL (0.0-0.7); #Lymphocytes 1.2 thou/uL (1.20-3.40); #Monocytes 0.9 thou/uL (0.11-0.59); #Neutrophils 5.3 thou/uL (1.40-6.50); %Basophils 0.3 % (0.0-1.0); %Eosinophils 1.2 % (0.0-10.0); %Lymphocytes 15.6 % (21.0-51.0); %Neutrophils 70.9 % (42.0-75.0); Mean Corpuscular HGB CONC 32.3 g/dL (32.0-36.0); Mean Corpuscular Hemoglobin 30.5 pg (27.0-31.0); Mean Corpuscular Volume 94.4 fl (81.0-99.0); Mean Platelet Volume 7.4 fL (7.4-10.4); Platelet Count 240 thou/uL (130-400); RBC Distribution Width 13.5 % (11.5-14.5); Red Blood Cell (RBC) Count 4.26 mill/uL (4.20-5.40); White Blood Cell (WBC) Count 7.5 thou/uL (4.8-10.8)
--- NOTE | 2017-11-16 10:27 | RAD ---
UPRIGHT PORTABLE CHEST 1 VIEW: Date: 11/16/17 HISTORY: 82-year-old female with history of dyspnea and weakness. COMPARISON: 05/12/17. FINDINGS: There is rotation to the left. Very poor inspiratory effort with bilateral pleural effusions and some bilateral vascular congestion, with at least borderline to minimal cardiomegaly, showing little vargas ge from the prior study given somewhat less inspiration and rotation. IMPRESSION: Poor inspiration with bilateral pleural effusions, vascular congestion, and cardiomegaly, with somewh at less optimal inspiration than on the prior study. Continue short-term follow-up. No evidence for a cute confluent pneumonia. POS: [facility]
[2017-11-16 10:29] LABS: ALT (SGPT) 10 U/L (8-55); AST (SGOT) 18 U/L (5-34); Albumin 3.3 g/dL (3.4-4.8); Alkaline Phosphatase 73 U/L (40-150); Anion Gap 10 mmol/L (10-20); BUN (Urea Nitrogen) 23 mg/dL (9.8-20.1); Bilirubin, Total 0.9 mg/dL (0.2-1.2); CK (CPK) 33 U/L (29-168); Calc. Creatinine Clearance 0 mL/min (70-130); Calcium 9.5 mg/dL (7.8-10.44); Carbon Dioxide 27 mmol/L (23-31); Chloride 108 mmol/L (98-107); Estimated GFR-MDRD 78; Globulin 3.6 g/dL (2.4-3.5); Glucose 166 mg/dL (83-110); Potassium 3.4 mmol/L (3.5-5.1); Protein, Total 6.9 g/dL (6.0-8.3); Sodium 142 mmol/L (136-145)
[2017-11-16 10:33] LABS: CKMB 1.4 ng/mL (0-6.6); Troponin I 0.036 ng/mL (< 0.028)
--- NOTE | 2017-11-16 10:36 | CT ---
CT BRAIN PERFORMED WITHOUT CONTRAST ENHANCEMENT: HISTORY: Altered mental status. History of Parkinson. COMPARISON: 05/11/2017 FINDINGS: There is generalized ventricular and sulcal prominence. There are no signs of intracerebral hemorrha ge or extraaxial fluid collections. The mastoid air cells and visualized sinuses are clear. IMPRESSION: Moderate atrophy. No acute intracranial abnormalities. Stable exam. POS: [facility]
[2017-11-16 11:04] LABS: Bilirubin Small (Negative); Blood, Urine Trace (Negative); Glucose, Urine (Dipstick) Negative (Negative); Leukocyte Large (Negative); Nitrite Positive (Negative); Protein, Urine (Dipstick) 30 mg/dL (Neg-Trace); Specific Gravity, Urine 1.015 (1.005-1.030)
[2017-11-16 11:06] LABS: Clarity HAZY (Clear)
[2017-11-16 11:07] LABS: RBC/HPF 0-3 HPF (0-3)
[2017-11-16 11:08] LABS: Bacteria/HPF 4+ HPF (None Seen); Hyaline Casts/LPF 0-3 HYALINE CAST LPF (0-3 Hyaline)
[2017-11-16] MEDS ORDERED: Diltiazem 125 MG/25 ML ONE (11:09)
[2017-11-16] MEDS ORDERED: HumaLOG 300 UNITS/3 ML VIAL SC PRN (12:19)
[2017-11-16] MEDS ORDERED: Dextrose 5% in Water 1,000 ML IV PRN (12:19)
[2017-11-16] MEDS ORDERED: Dextrose 50% Abboject 50 ML SYRINGE SLOW IVP PRN (12:19)
[2017-11-16] MEDS ORDERED: Milk Of Magnesia 30 ML UDCUP PO PRN (12:20)
[2017-11-16] MEDS ORDERED: Acetaminophen 325 MG TAB PO PRN (12:20)
[2017-11-16] MEDS ORDERED: Potassium Chloride 20 MEQ TAB PO SCH ×2 (12:30)
[2017-11-16 13:04] LABS: Troponin I 0.037 ng/mL (< 0.028)
[2017-11-16] MEDS: Furosemide 40 MG/4 ML VIAL SLOW IVP SCH (14:20)
[2017-11-16 16:26] LABS: Troponin I 0.047 ng/mL (< 0.028)
--- NOTE | 2017-11-16 17:14 | CON ---
DATE OF CONSULTATION: 11/16/2017 REASON FOR CONSULTATION: Shortness of breath. HISTORY OF PRESENT ILLNESS: Ms. Pierson is a very pleasant 82-year-old woman who has been seen and e valuated for preop clearance. She needs a suprapubic spain catheter. She underwent a noninvasive stre ss study yesterday with a cardiac catheterization that was negative for ischemia. LVEF was normal. She recently presented with shortness of breath. She also presented with fevers, chills and dysuria. The family also states she was having intermittent issues with tachycardia. PAST MEDICAL HISTORY: Hyperlipidemia, hypertension, diabetes mellitus, advanced Parkinson's disease, back surgery. ALLERGIES: CODEINE. HOME MEDICATIONS: Amiodarone 200 mg one p.o. q.a.m., Claritin, famotidine, glipizide, pravastatin, A zilect. REVIEW OF SYSTEMS: A 10-point review of systems is reviewed and as above, otherwise negative. The patient had been seen and evaluated by Dr. Cleveland Locke in 2016 and was placed on amiodarone therapy . She had been lost to follow up. PHYSICAL EXAMINATION: GENERAL: Patient is a pleasant female who is in no acute distress. The patient appears her stated a ge. VITAL SIGNS: Blood pressure 144/78, pulse 95, temperature 99.1. NEUROLOGIC: The patient is alert and oriented times 3 with no focal neurologic deficits. HEENT: Sclerae without icterus. Mouth has moist mucous membranes with normal pallor. NECK: No JVD. Carotid upstroke brisk. No bruits bilaterally. LUNGS: Clear to auscultation with unlabored respirations. BACK: No scoliosis or kyphosis. CARDIAC: Regular rate and rhythm with normal S1 and S2. No S3 or S4 noted. No significant rubs, mu rmurs, thrills, or gallops noted throughout the precordium. PMI is not displaced. There is no kelsie ternal heave. ABDOMEN: Soft, nontender, nondistended. No peritoneal signs present. No hepatosplenomegaly. No ab normal striae. EXTREMITIES: 2+ femoral and 2+ dorsalis pedis pulses. No cyanosis, clubbing, or edema. SKIN: No gross abnormalities. PERTINENT LABS: White blood cell count 10.5, hemoglobin 13, creatinine 0.85. Peak troponin 0.037. IMPRESSION: 1. Shortness of breath. 2. Urinary tract infection. 3. Advanced Parkinson's disease. RECOMMENDATIONS: From a CV standpoint, Ms. Pierson appears stable. She had a recent stress study, i t was negative for ischemia. Her shortness of breath is felt to be cardiac, maybe from a diastolic d ysfunction. I would recommend diuresis. She is currently on Lasix 40 mg IV. She was also placed on Rocephin for a recent UTI. Otherwise, I have no further recommendations.
--- NOTE | 2017-11-16 19:40 | HP ---
CHIEF COMPLAINT: Worsening confusion. HISTORY OF PRESENT ILLNESS: Ms. Maggie Pierson is an 82-year-old female with a past medical history of type 2 diabetes mellitus, CHF, hypertension, hyperlipidemia, CKD, and Parkinson's disease, who presented to the emergency room from [facility], was sent home on account of tachycardia. According to correction staff, she has had decrease in her mental status since Wednesday, and today she developed elevated heart rate , which heart beating irregularly and rates between 98 and early 100s. Family reports the patient has been declining in health for the past few months, she has become less alert and does not follow commands as usual and has multiple episodes of confusion. On presentation to the emergency room and EKG done showed some ST segment elevations, elevated troponin at 0.036, BNP of 938, potassium 3.4. She also had a brain CT, which showed moderate atrophy, but no acute intracranial abnormalities and a chest x-ray, which revealed bilateral pleural effusions, vascular congestion, and cardiomegaly. She also had urinalysis, which showed increased WBCs, leukocyte esterase, nitrites, and bacteria. Cultures were taken and she was started on IV ceftriaxone for urinary tract infection causing acute encephalopathy, and IV furosemide for acute heart failure. Cardiology was called, concerning the ST segment elevations were recommended medical treatment for now and do trend troponins. PAST MEDICAL HISTORY: As stated in the HPI. PAST SURGICAL HISTORY: Remote history of back surgery and appendectomy over 70 years ago. SOCIAL HISTORY: Does not drink alcohol or use illicit drugs or smoke cigarettes. FAMILY HISTORY: Reviewed and noncontributory. ALLERGIES: CODEINE. CODE STATUS: DNR (the patient has an out of hospital DNR order). HOME MEDICATIONS: Acetaminophen 500 mg 1-2 tablets every 6 hours p.r.n., amiodarone 1200 mg daily, bisacodyl 10 mg daily, carbidopa/levodopa 25 mg/250 mg tablet 1 tablet t.i.d., D-mannose 1 gram daily, famotidine 20 mg at bedtime, folic acid 1 tablet daily, furosemide 40 mg b.i.d., glipizide 5 mg q.a.m., loperamide/simethicone 2 tablets p.o. as directed p.r.n., Loratadine 10 mg daily , magnesium hydroxide 400 mg in 5 mL: 30 mL daily, ondansetron 4 mg q.8 hours p.r.n., polyethylene glycol 17 grams p.o. as directed daily p.r.n., pravastatin 10 mg at bedtime, rasagiline mesylate 1 tablet daily, rivaroxaban 15 mg q.p.m., amoxicillin/potassium clavulanic acid 875/125 mg tablet one tablet every 12 hours. REVIEW OF SYSTEMS: Unable to conduct due to patient's clinical status- confusion. PHYSICAL EXAMINATION: VITAL SIGNS: Blood pressure 111/76, heart rates ranging between 80-95 from a respiratory rate ranging between 18-20, oxygen saturation 94% on 2 liters of oxygen by nasal cannula. GENERAL: Not in acute distress, lying comfortably in bed, alert, oriented to person and place only. HEENT: Not pale, anicteric. PERRLA, EOMI. Dry mucous membranes. NECK: No JVD. CARDIOVASCULAR: S1 and S2 only, no murmurs, rubs, or gallops, irregular rhythm. EXTREMITIES: No lower extremity edema. RESPIRATORY: Vesicular breath sounds with bibasilar crackles. ABDOMEN: Soft, nontender, nondistended. Bowel sounds normoactive. No hepatosplenomegaly. NEUROLOGIC: Has episodes of confusion, brought oriented to person and place. No obvious focal deficit. No significant tremors noted. PSYCHIATRIC: Normal mood and affect. SKIN: Warm, dry, well-perfused. decbitus sacral ulcers. MUSCULOSKELETAL: Moving extremities spontaneously with no edema. LABORATORY DATA: As stated in HPI. IMAGING: Chest x-ray and EKG, as well as CT head as stated in HPI. ASSESSMENT AND PLAN: 1. Acute on chronic congestive heart failure. The patient with a history of congestive heart failure p/w exacerbation and echocardiogram done in 01/2016, which showed an ejection fraction of 55% to 60% and grade I diastolic dysfunction. Therefore, she probably has congestive heart failure with diastolic dysfunction now. We will admit to telemetry, give IV furosemide 40 mg b.i.d., monitor weights, In's and Out's. We will also consult Cardiology. We will resume home medications once confirmed as well. 2. Elevated troponin: Concern for possible ST-elevation myocardial infarction for which Cardiology currently recommends medical management. 3. Atrial fibrillation. The patient presented with rapid ventricular response. she has a history of atrial fibrillation as she is on amiodarone and rivaroxaban, although no documentation in [facility] of history of atrial fibrillation. We will ensure rate control while in hospital and continue home medications. 4. Acute encephalopathy: Likely this is due to urinary tract infection. She has been started on IV ceftriaxone. We will follow up urine cultures. 5. Parkinson's disease: Stable, we will continue home medications. 6. Chronic kidney disease: The patient seems to be at her baseline. We will continue her home medications. 7. Hypertension. Blood pressure is currently well controlled. I will resume home medication. 8. Hyperlipidemia. We will obtain lipid profile and continue statins. CODE STATUS: DNR. MTDJesse
[2017-11-16] MEDS: Docusate 100 MG CAP PO SCH (21:21)
[2017-11-17 04:51] LABS: #Eosinphils 0.1 thou/uL (0.0-0.7); #Lymphocytes 1.3 thou/uL (1.20-3.40); #Neutrophils 5.7 thou/uL (1.40-6.50); %Basophils 0.4 % (0.0-1.0); %Eosinophils 0.8 % (0.0-10.0); %Lymphocytes 15.6 % (21.0-51.0); %Neutrophils 71.3 % (42.0-75.0); Hemoglobin 12.5 g/dL (12.0-16.0); Mean Corpuscular HGB CONC 32.5 g/dL (32.0-36.0); Mean Corpuscular Hemoglobin 30.9 pg (27.0-31.0); Mean Corpuscular Volume 95.1 fl (81.0-99.0); Mean Platelet Volume 7.5 fL (7.4-10.4); Platelet Count 256 thou/uL (130-400); RBC Distribution Width 13.4 % (11.5-14.5); Red Blood Cell (RBC) Count 4.06 mill/uL (4.20-5.40)
[2017-11-17 05:04] LABS: Anion Gap 13 mmol/L (10-20); BUN (Urea Nitrogen) 22 mg/dL (9.8-20.1); Calc. Creatinine Clearance 61 mL/min (70-130); Calcium 9.5 mg/dL (7.8-10.44); Carbon Dioxide 29 mmol/L (23-31); Cardiac Risk 3.5 (Less than 4.5); Chloride 109 mmol/L (98-107); Cholesterol 126 mg/dl (< 200 Desired); Estimated GFR-MDRD 78; Glucose 152 mg/dL (83-110); HDL Cholesterol 36 mg/dL (>60 Neg Risk); LDL Cholesterol, Calculated 78 mg/dL; Potassium 3.7 mmol/L (3.5-5.1); Sodium 147 mmol/L (136-145); Triglycerides 60 mg/dL (Less than 150)
[2017-11-17] MEDS ORDERED: Sodium Chloride 0.9% 10 ML ONE (05:33)
[2017-11-17] MEDS: Furosemide 40 MG/4 ML VIAL SLOW IVP SCH ×2 (06:25→15:19)
--- NOTE | 2017-11-17 08:29 | PRG ---
DATE OF SERVICE: 11/17/2017 HISTORY OF PRESENT ILLNESS: Ms. Pierson is doing well. She continues to have intermittent PVCs. Sh e is in sinus rhythm. No chest pain or pressure noted. CARDIAC MEDICATIONS: Amiodarone, Xarelto, pravastatin and Lasix. PHYSICAL EXAMINATION: VITAL SIGNS: Blood pressure 137/96, pulse 82, temperature 97.6. GENERAL: Patient is a pleasant female who is in no acute distress. The patient appears her stated ag e. NEUROLOGIC: The patient is alert and oriented times 3 with no focal neurologic deficits. HEENT: Sclerae without icterus. Mouth has moist mucous membranes with normal pallor. NECK: No JVD. Carotid upstroke brisk. No bruits bilaterally. LUNGS: Clear to auscultation with unlabored respirations. BACK: No scoliosis or kyphosis. CARDIAC: Regular rate and rhythm with normal S1 and S2. No S3 or S4 noted. No significant rubs, mur murs, thrills, or gallops noted throughout the precordium. PMI is not displaced. There is no parast ernal heave. ABDOMEN: Soft, nontender, nondistended. No peritoneal signs present. No hepatosplenomegaly. No abn ormal striae. EXTREMITIES: 2+ femoral and 2+ dorsalis pedis pulses. No cyanosis, clubbing, or edema. SKIN: No gross abnormalities. PERTINENT LABS: Hemoglobin 12.2, creatinine 0.85. IMPRESSION: 1. Dysrhythmia. 2. Urinary tract infection. 3. Shortness of breath. Ms. Pierson's symptoms are improving. Her recent stress test was negative for ischemia. I have adde d low dose beta michele therapy to her current regime. Continue amiodarone therapy.
[2017-11-17] MEDS ORDERED: cefTRIAXone\\ROCEPHIN 1 GM in Sodium Chloride 0.9% 100 ML IVPB SCH (09:00)
[2017-11-17 09:03] VITALS: BMI 25.8
[2017-11-17] MEDS: Potassium Chloride 20 MEQ TAB PO SCH ×2 (09:15)
[2017-11-17] MEDS: Metoprolol Tartrate 25 MG TAB PO SCH ×2 (09:16→20:16)
[2017-11-17] MEDS: Docusate 100 MG CAP PO SCH ×2 (09:16→20:17)
[2017-11-17] MEDS: cefTRIAXone\\ROCEPHIN 1 GM, Syringe 0.4 ML in Sterile Water 9.6 ML SLOW IVP SCH (09:18)
[2017-11-17] MEDS ORDERED: Milk Of Magnesia 30 ML UDCUP PO PRN (09:50)
[2017-11-17] MEDS ORDERED: Loratadine 10 MG TAB PO PRN (09:50)
[2017-11-17] MEDS ORDERED: Bisacodyl 5 MG TAB PO PRN (09:50)
[2017-11-17] MEDS ORDERED: Ondansetron ODT 4 MG TAB PO PRN (10:04)
--- NOTE | 2017-11-17 15:11 | PDOC.PN ---
- Subjective Encounter Start Date: 11/17/17 Encounter Start Time: 15:15 Subjective: No new complaints. Pt states she feels 'alright" -: No acute events overnight. - Objective Resuscitation Status: Resuscitation Status DNR:Do Not Resuscitate MAR Reviewed: Yes Vital Signs & Weight: Vital Signs (12 hours) Temp Pulse Resp BP Pulse Ox 11/17/17 07:56 97.6 F 82 18 92 L 11/17/17 07:28 97.6 F 82 18 137/96 H 92 L 11/17/17 06:33 81 20 128/59 L 11/17/17 04:00 97.6 F 82 20 175/91 H 95 Weight Admit Weight 162 lb Weight 160 lb I&O: 11/16/17 11/17/17 11/18/17 06:59 06:59 06:59 Intake Total 880 Balance 880 Result Diagrams: 11/17/17 04:26 11/17/17 04:26 Additional Labs: Accuchecks 11/17/17 11/17/17 11/16/17 11:49 05:57 20:10 POC Glucose 127 H 165 H 108 11/16/17 16:30 POC Glucose 158 H Phys Exam - Physical Examination Constitutional: NAD HEENT: moist MMs, sclera anicteric, oral pharynx no lesions Neck: no JVD, supple, full ROM Respiratory: no wheezing, no rales, no rhonchi, clear to auscultation bilateral Cardiovascular: RRR, no significant murmur, no rub Gastrointestinal: soft, non-tender, no distention, positive bowel sounds Musculoskeletal: no edema, pulses present Neurological: moves all 4 limbs Psychiatric: normal affect Deviation from normal: AO X 2 Dx/Plan (1) Acute on chronic heart failure Code(s): I50.9 - HEART FAILURE, UNSPECIFIED Status: Acute Qualifiers: Heart failure type: diastolic Qualified Code(s): I50.33 - Acute on chronic diastolic (congestive) heart failure Comment: Improving w diuresis. Recent stress test negative for ischemia. (2) Decubitus ulcer of sacral area Status: Chronic Qualifiers: Pressure ulcer stage: stage 3 (3) UTI (urinary tract infection) Status: Acute Qualifiers: Urinary tract infection type: acute cystitis Hematuria presence: without hematuria Qualified Code(s): N30.00 - Acute cystitis without hematuria (4) HTN (hypertension) Code(s): I10 - ESSENTIAL (PRIMARY) HYPERTENSION Status: Chronic Qualifiers: Hypertension type: essential hypertension (5) Parkinson disease Code(s): G20 - PARKINSON'S DISEASE Status: Chronic (6) Paroxysmal atrial fibrillation Code(s): I48.0 - PAROXYSMAL ATRIAL FIBRILLATION Status: Chronic Comment: on xarelto, amiodarone and metoprolol. (7) Encephalopathy acute Code(s): G93.40 - ENCEPHALOPATHY, UNSPECIFIED Status: Acute Comment: Likely 2/2 UTI. Improving. - Plan cont current plan of care, plan discussed w/ family, continue antibiotics, PT/OT Continue IV diuresis -: PT/OT -: Started on metoprolol -: f/u cardiology recs. * . Review of Systems - Medications/Allergies Allergies/Adverse Reactions: Allergies Allergy/AdvReac Type Severity Reaction Status Date / Time codeine Allergy Verified 05/06/17 12:57 Opioids Analgesics Allergy Uncoded 07/01/16 16:36 Medications: Current Medications Acetaminophen (Tylenol) 650 mg PO Q4H PRN PRN Reason: Headache/Fever or Pain Amiodarone HCl (Cordarone) 200 mg PO DAILY [facility] Bisacodyl (Dulcolax) 10 mg PO DAILY PRN PRN Reason: Constipation Carbidopa/Levodopa (Sinemet 25-250) 1 tab PO TID [facility] Dextrose/Water (Dextrose 50%) 25 gm SLOW IVP PRN PRN PRN Reason: Hypoglycemia Docusate Sodium (Colace) 100 mg PO BID [facility] Last Admin: 11/17/17 09:16 Dose: Not Given Famotidine (Pepcid) 20 mg PO HS [facility] Folic Acid (Folvite) 1 mg PO DAILY [facility] Furosemide (Lasix) 40 mg SLOW IVP 0600,1400 [facility] Last Admin: 11/17/17 06:25 Dose: 40 mg Glucagon (Glucagon) 1 mg IM PRN PRN PRN Reason: Hypoglycemia Dextrose/Water (D5w) 1,000 mls @ 0 mls/hr IV .Q0M PRN; As Directed PRN Reason: Hypoglycemia Ceftriaxone Sodium 1 gm/ (Syringe 0.4 ml/ Sterile Water) 10 mls @ 120 mls/hr SLOW IVP QAM [facility] Last Admin: 11/17/17 09:18 Dose: 10 mls Insulin Human Lispro (Humalog) 0 units SC .MILD SLIDING SCALE PRN PRN Reason: Mild Correctional Scale Lactulose (Lactulose) 20 gm PO DAILYPRN PRN PRN Reason: Constipation Loratadine (Claritin) 10 mg PO DAILY PRN PRN Reason: Allergies Magnesium Hydroxide (Milk Of Magnesium) 30 ml PO DAILYPRN PRN PRN Reason: Constipation Metoprolol Tartrate (Lopressor) 25 mg PO BID [facility] Last Admin: 11/17/17 09:16 Dose: 25 mg Non-Formulary Medication (D-Mannose [D-Mannose]) 1 gm MC DAILY [facility] Ondansetron HCl (Zofran Odt) 4 mg PO Q8H PRN PRN Reason: Nausea (Rasagiline Mesylate [Azilect] 1 Mg) Med 0 each PO DAILY [facility] Polyethylene Glycol (Miralax) 17 gm PO DAILY [facility] Potassium Chloride (K-Dur) 20 meq PO QAM-WM [facility] Last Admin: 11/17/17 09:15 Dose: 20 meq Pravastatin Sodium (Pravachol) 10 mg PO HS [facility] Rivaroxaban (Xarelto) 15 mg PO QPM [facility]
[2017-11-17] MEDS: Carbidopa/Levodopa 25-250 mg Tablet PO SCH ×2 (15:20→20:15)
[2017-11-17] MEDS: Rivaroxaban 15 MG TAB PO SCH (20:15)
[2017-11-17] MEDS: Pravastatin Sodium 20 MG TAB PO SCH (20:16)
[2017-11-17] MEDS: Famotidine 20 MG TAB PO SCH (20:16)
[2017-11-18 05:07] LABS: #Lymphocytes 0.7 thou/uL (1.20-3.40); #Monocytes 0.9 thou/uL (0.11-0.59); #Neutrophils 5.5 thou/uL (1.40-6.50); %Basophils 0.1 % (0.0-1.0); %Eosinophils 0.6 % (0.0-10.0); %Monocytes 12.2 % (0.0-10.0); %Neutrophils 77.1 % (42.0-75.0); Hemoglobin 13.5 g/dL (12.0-16.0); Mean Corpuscular HGB CONC 32.3 g/dL (32.0-36.0); Mean Corpuscular Hemoglobin 31.3 pg (27.0-31.0); Mean Corpuscular Volume 96.9 fl (81.0-99.0); Mean Platelet Volume 7.8 fL (7.4-10.4); Platelet Count 249 thou/uL (130-400); RBC Distribution Width 13.4 % (11.5-14.5); Red Blood Cell (RBC) Count 4.32 mill/uL (4.20-5.40); White Blood Cell (WBC) Count 7.1 thou/uL (4.8-10.8)
[2017-11-18 05:17] LABS: Anion Gap 11 mmol/L (10-20); BUN (Urea Nitrogen) 18 mg/dL (9.8-20.1); Calc. Creatinine Clearance 69 mL/min (70-130); Calcium 9.6 mg/dL (7.8-10.44); Carbon Dioxide 28 mmol/L (23-31); Chloride 107 mmol/L (98-107); Estimated GFR-MDRD Greater than 90; Glucose 170 mg/dL (83-110); Potassium 3.8 mmol/L (3.5-5.1); Sodium 142 mmol/L (136-145)
[2017-11-18] MEDS: Furosemide 40 MG/4 ML VIAL SLOW IVP SCH ×2 (06:16→15:05)
[2017-11-18] MEDS ORDERED: RASAGILINE 1 MG PO SCH (09:00)
[2017-11-18] MEDS: Folic Acid 1 MG TAB PO SCH (09:58)
[2017-11-18] MEDS: Carbidopa/Levodopa 25-250 mg Tablet PO SCH ×3 (09:58→19:43)
[2017-11-18] MEDS: Potassium Chloride 20 MEQ TAB PO SCH ×2 (09:58)
[2017-11-18] MEDS: Amiodarone 200 MG TAB PO SCH (09:58)
[2017-11-18] MEDS: Metoprolol Tartrate 25 MG TAB PO SCH ×2 (09:58→20:53)
[2017-11-18] MEDS: Docusate 100 MG CAP PO SCH ×2 (09:59→19:44)
[2017-11-18] MEDS: Polyethylene Glycol 3350 17 GM Packet PO SCH (09:59)
[2017-11-18] MEDS: cefTRIAXone\\ROCEPHIN 1 GM, Syringe 0.4 ML in Sterile Water 9.6 ML SLOW IVP SCH (10:05)
--- NOTE | 2017-11-18 16:23 | PDOC.PN ---
- Subjective Encounter Start Date: 11/18/17 Encounter Start Time: 16:21 Ms. Pierson was seen today in follow-up. She has advanced Parkinson's disease and was unable to voice her concerns. Her granddaughter was at the bedside and said she is essentially unchanged. She does not appear short of breath. - Objective Resuscitation Status: Resuscitation Status DNR:Do Not Resuscitate MAR Reviewed: Yes Vital Signs & Weight: Vital Signs (12 hours) Temp Pulse Resp BP Pulse Ox 11/18/17 14:00 97.8 F 107 H 19 132/91 H 94 L 11/18/17 07:39 96.9 F L 103 H 18 136/95 H 97 11/18/17 07:26 96.9 F L 103 H 18 97 Weight Admit Weight 162 lb Weight 160 lb I&O: 11/17/17 11/18/17 11/19/17 06:59 06:59 06:59 Intake Total 880 120 Balance 880 120 Result Diagrams: 11/18/17 04:33 11/18/17 04:33 Additional Labs: Accuchecks 11/18/17 11/17/17 11/17/17 05:46 20:55 17:02 POC Glucose 180 H 143 H 154 H Phys Exam - Physical Examination HEENT: PERRLA + coarse breath sounds Cardiovascular: no significant murmur, irregular Gastrointestinal: soft, non-tender, positive bowel sounds Musculoskeletal: edema present 1+ edema Dx/Plan (1) Acute on chronic heart failure Code(s): I50.9 - HEART FAILURE, UNSPECIFIED Status: Acute Qualifiers: Heart failure type: diastolic Qualified Code(s): I50.33 - Acute on chronic diastolic (congestive) heart failure Comment: Improving w diuresis. Recent stress test negative for ischemia. (2) UTI (urinary tract infection) Status: Acute Qualifiers: Urinary tract infection type: acute cystitis Hematuria presence: without hematuria Qualified Code(s): N30.00 - Acute cystitis without hematuria (3) Diabetes type 2, controlled Code(s): E11.9 - TYPE 2 DIABETES MELLITUS WITHOUT COMPLICATIONS Status: Chronic Qualifiers: Diabetes mellitus fci insulin use: without ferry terminal supervisor use Diabetes mellitus complication status: with unspecified complications Qualified Code(s) : E11.8 - Type 2 diabetes mellitus with unspecified complications (4) HTN (hypertension) Code(s): I10 - ESSENTIAL (PRIMARY) HYPERTENSION Status: Chronic Qualifiers: Hypertension type: essential hypertension (5) Parkinson disease Code(s): G20 - PARKINSON'S DISEASE Status: Chronic (6) Paroxysmal atrial fibrillation Code(s): I48.0 - PAROXYSMAL ATRIAL FIBRILLATION Status: Chronic Comment: on xarelto, amiodarone and metoprolol. - Plan * Acute respiratory failure- likely from acute on chronic diastolic heart failure, and AFIB- still awaiting Echo results * AFIB- her heart rate is controlled on Amiodarone. She is on Xarelto for stroke prevention * UTI- urine culture was not sent - will continue Rocephin * DM- blood glucose is stable * HTN- blood pressure is stable * Likely back to [place] soon
--- NOTE | 2017-11-18 18:30 | PRG ---
DATE OF SERVICE: 11/18/2017 SUBJECTIVE: Ms. Pierson's heart rate has been slightly elevated. It has been in the 90s-100s. No c urrent complaints. PHYSICAL EXAMINATION: CURRENT VITAL SIGNS: Blood pressure 131/91, pulse 107, temperature 97.8. LUNGS: Clear to auscultation. HEART: Irregularly regular. ABDOMEN: Soft, nontender, nondistended. EXTREMITIES: No edema. PERTINENT LABORATORY DATA: Hemoglobin 13.5 and creatinine 0.74. IMPRESSION: 1. Paroxysmal atrial fibrillation. 2. Recent urinary tract infection. 3. Premature ventricular contractions. RECOMMENDATIONS: 1. Increase metoprolol to 50 mg 1 p.o. b.i.d. for better rate control. 2. Continue antibiotic therapy. 3. Recent stress study negative for ischemia.
[2017-11-18] MEDS: Rivaroxaban 15 MG TAB PO SCH (19:43)
[2017-11-18] MEDS: Pravastatin Sodium 20 MG TAB PO SCH (19:43)
[2017-11-18] MEDS: Famotidine 20 MG TAB PO SCH (19:43)
[2017-11-19 04:57] LABS: #Lymphocytes 1.4 thou/uL (1.20-3.40); #Neutrophils 5.9 thou/uL (1.40-6.50); %Basophils 0.1 % (0.0-1.0); %Eosinophils 0.5 % (0.0-10.0); %Lymphocytes 16.4 % (21.0-51.0); %Monocytes 11.9 % (0.0-10.0); %Neutrophils 71.1 % (42.0-75.0); Mean Corpuscular Hemoglobin 31.3 pg (27.0-31.0); Mean Corpuscular Volume 97.8 fl (81.0-99.0); Mean Platelet Volume 7.8 fL (7.4-10.4); Platelet Count 294 thou/uL (130-400); RBC Distribution Width 13.5 % (11.5-14.5); Red Blood Cell (RBC) Count 4.47 mill/uL (4.20-5.40); White Blood Cell (WBC) Count 8.3 thou/uL (4.8-10.8)
[2017-11-19 05:27] LABS: Anion Gap 16 mmol/L (10-20); BUN (Urea Nitrogen) 22 mg/dL (9.8-20.1); Calc. Creatinine Clearance 63 mL/min (70-130); Calcium 9.9 mg/dL (7.8-10.44); Carbon Dioxide 25 mmol/L (23-31); Chloride 107 mmol/L (98-107); Estimated GFR-MDRD 77; Glucose 138 mg/dL (83-110); Potassium 4.5 mmol/L (3.5-5.1); Sodium 143 mmol/L (136-145)
[2017-11-19] MEDS: Furosemide 40 MG/4 ML VIAL SLOW IVP SCH ×2 (06:00→15:35)
[2017-11-19] MEDS: Amiodarone 200 MG TAB PO SCH (09:25)
[2017-11-19] MEDS: Carbidopa/Levodopa 25-250 mg Tablet PO SCH ×3 (09:25→20:15)
[2017-11-19] MEDS: Folic Acid 1 MG TAB PO SCH (09:25)
[2017-11-19] MEDS: Metoprolol Tartrate 25 MG TAB PO SCH ×2 (09:25→20:16)
[2017-11-19] MEDS: Polyethylene Glycol 3350 17 GM Packet PO SCH (09:26)
[2017-11-19] MEDS: Docusate 100 MG CAP PO SCH ×2 (09:26→20:21)
[2017-11-19] MEDS: Potassium Chloride 20 MEQ TAB PO SCH ×2 (09:26)
[2017-11-19] MEDS: cefTRIAXone\\ROCEPHIN 1 GM, Syringe 0.4 ML in Sterile Water 9.6 ML SLOW IVP SCH (09:33)
--- NOTE | 2017-11-19 10:18 | PDOC.CTH ---
Cardiology Progress Note - Subjective Patient with no overnight events. Daughters at bedside. Converted to NSR overnight. Discussed option for treatment including Amio and potential side effects. - ROS not able to obtain ROS - Objective Vital Signs Temp Pulse Resp BP Pulse Ox 11/19/17 07:53 96.1 F L 78 18 154/71 H 94 L 11/19/17 07:43 96.1 F L 78 20 96 11/19/17 04:50 97.3 F L 91 20 159/73 H Admit Weight 162 lb Weight 169 lb 4.8 oz 11/18/17 11/19/17 11/20/17 06:59 06:59 06:59 Intake Total 840 120 Balance 840 120 - Physical Examination General/Neuro: NAD, other: (AA&O x 2) Neck: no JVD present Lungs: CTA Heart: RRR Abdomen: NT/ND, soft - Telemetry Telemetry Rhythm: SR 70s - Labs Result Diagrams: 11/19/17 04:37 11/19/17 04:37 Troponin/CKMB CK-MB (CK-2) 1.4 ng/mL (0-6.6) 11/16/17 09:57 Troponin I 0.047 ng/mL (< 0.028) H 11/16/17 15:55 - Assessment/Plan 1. Paroxysmal AFib - now in NSR. On Xarelto 15mg daily. Amio started last night. Agree, but patient's family unsure if they want to risk potential side effects. They will discuss further and let us know if we need to continue. 2. Acute CHF - recent normal ECHO. 3. HTN - continue to titrate med 4. CKD Stage 3 - avoid nephrotoxic drugs 5. DM II - managed by PCP 6. Advanced Parkinsons 7. DNR
--- NOTE | 2017-11-19 11:17 | PDOC.PN ---
- Subjective Encounter Start Date: 11/19/17 Encounter Start Time: 11:14 Ms. Pierson was seen today in follow-up for AFIB. She is more alert this morning , and does not have any complaints. - Objective Resuscitation Status: Resuscitation Status DNR:Do Not Resuscitate MAR Reviewed: Yes Vital Signs & Weight: Vital Signs (12 hours) Temp Pulse Resp BP Pulse Ox 11/19/17 07:53 96.1 F L 78 18 154/71 H 94 L 11/19/17 07:43 96.1 F L 78 20 96 11/19/17 04:50 97.3 F L 91 20 159/73 H Weight Admit Weight 162 lb Weight 169 lb 4.8 oz I&O: 11/18/17 11/19/17 11/20/17 06:59 06:59 06:59 Intake Total 840 120 Balance 840 120 Result Diagrams: 11/19/17 04:37 11/19/17 04:37 Additional Labs: Accuchecks 11/19/17 11/18/17 11/18/17 06:06 20:53 16:36 POC Glucose 135 H 193 H 188 H 11/18/17 10:55 POC Glucose 171 H Phys Exam - Physical Examination HEENT: PERRLA Respiratory: no wheezing, no rales, no rhonchi, clear to auscultation bilateral Cardiovascular: RRR, no significant murmur, no rub Gastrointestinal: soft, non-tender, no distention, positive bowel sounds Musculoskeletal: edema present trace pedal edema Dx/Plan (1) Acute on chronic heart failure Code(s): I50.9 - HEART FAILURE, UNSPECIFIED Status: Acute Qualifiers: Heart failure type: diastolic Qualified Code(s): I50.33 - Acute on chronic diastolic (congestive) heart failure Comment: Improving w diuresis. Recent stress test negative for ischemia. (2) UTI (urinary tract infection) Status: Acute Qualifiers: Urinary tract infection type: acute cystitis Hematuria presence: without hematuria Qualified Code(s): N30.00 - Acute cystitis without hematuria (3) Diabetes type 2, controlled Code(s): E11.9 - TYPE 2 DIABETES MELLITUS WITHOUT COMPLICATIONS Status: Chronic Qualifiers: Diabetes mellitus terminal make up operator insulin use: without senior care use Diabetes mellitus complication status: with unspecified complications Qualified Code(s) : E11.8 - Type 2 diabetes mellitus with unspecified complications (4) HTN (hypertension) Code(s): I10 - ESSENTIAL (PRIMARY) HYPERTENSION Status: Chronic Qualifiers: Hypertension type: essential hypertension (5) Parkinson disease Code(s): G20 - PARKINSON'S DISEASE Status: Chronic (6) Paroxysmal atrial fibrillation Code(s): I48.0 - PAROXYSMAL ATRIAL FIBRILLATION Status: Chronic Comment: on xarelto, amiodarone and metoprolol. - Plan * AFIB with RVR- she has converted to sinus rhythm * HTN- blood pressure is borderline, but acceptable * Parkinson's Disease- advanced, she is bed-bound as a result * Family is to decide on whether or not to start Amiodarone * Possible discharge home soon.
[2017-11-19] MEDS: Famotidine 20 MG TAB PO SCH (20:16)
[2017-11-19] MEDS: Pravastatin Sodium 20 MG TAB PO SCH (20:16)
[2017-11-19] MEDS: Rivaroxaban 15 MG TAB PO SCH (20:16)
[2017-11-20] MEDS: Furosemide 40 MG/4 ML VIAL SLOW IVP SCH ×2 (04:22→15:11)
[2017-11-20 06:11] LABS: #Lymphocytes 1.4 thou/uL (1.20-3.40); #Monocytes 1.4 thou/uL (0.11-0.59); #Neutrophils 6.3 thou/uL (1.40-6.50); %Basophils 0.3 % (0.0-1.0); %Eosinophils 0.4 % (0.0-10.0); %Lymphocytes 15.1 % (21.0-51.0); %Monocytes 14.9 % (0.0-10.0); %Neutrophils 69.3 % (42.0-75.0); Hemoglobin 14.2 g/dL (12.0-16.0); Mean Corpuscular HGB CONC 30.6 g/dL (32.0-36.0); Mean Corpuscular Hemoglobin 30.2 pg (27.0-31.0); Mean Corpuscular Volume 98.7 fl (81.0-99.0); Mean Platelet Volume 7.2 fL (7.4-10.4); Platelet Count 268 thou/uL (130-400); RBC Distribution Width 13.5 % (11.5-14.5); Red Blood Cell (RBC) Count 4.71 mill/uL (4.20-5.40); White Blood Cell (WBC) Count 9.1 thou/uL (4.8-10.8)
[2017-11-20 06:20] LABS: Anion Gap 13 mmol/L (10-20); BUN (Urea Nitrogen) 27 mg/dL (9.8-20.1); Calc. Creatinine Clearance 58 mL/min (70-130); Calcium 9.4 mg/dL (7.8-10.44); Carbon Dioxide 36 mmol/L (23-31); Chloride 103 mmol/L (98-107); Estimated GFR-MDRD 69; Glucose 147 mg/dL (83-110); Potassium 4.9 mmol/L (3.5-5.1); Sodium 147 mmol/L (136-145)
[2017-11-20] MEDS ORDERED: Furosemide 20 MG/2 ML VIAL SLOW IVP SCH (06:30)
[2017-11-20] MEDS: Amiodarone 200 MG TAB PO SCH (08:47)
[2017-11-20] MEDS: Potassium Chloride 20 MEQ TAB PO SCH ×2 (08:47)
[2017-11-20] MEDS: Carbidopa/Levodopa 25-250 mg Tablet PO SCH ×2 (08:47→15:11)
[2017-11-20] MEDS: Docusate 100 MG CAP PO SCH ×2 (08:47→22:52)
[2017-11-20] MEDS: Metoprolol Tartrate 25 MG TAB PO SCH ×2 (08:47→22:57)
[2017-11-20] MEDS: Polyethylene Glycol 3350 17 GM Packet PO SCH (08:48)
[2017-11-20] MEDS: Folic Acid 1 MG TAB PO SCH (08:48)
[2017-11-20] MEDS: cefTRIAXone\\ROCEPHIN 1 GM, Syringe 0.4 ML in Sterile Water 9.6 ML SLOW IVP SCH (08:50)
--- NOTE | 2017-11-20 11:40 | PDOC.PN ---
- Subjective Encounter Start Date: 11/20/17 Encounter Start Time: 11:38 Ms. Pierson was seen today in follow-up. She has been very drowsy most of the morning, and her granddaughter says most of the day yesterday as well. - Objective Resuscitation Status: Resuscitation Status DNR:Do Not Resuscitate MAR Reviewed: Yes Vital Signs & Weight: Vital Signs (12 hours) Temp Pulse Resp BP Pulse Ox 11/20/17 08:00 97.1 F L 71 20 11/20/17 03:52 98 F 71 36 H 160/68 H 93 L Weight Admit Weight 162 lb Weight 170 lb 12.8 oz I&O: 11/19/17 11/20/17 11/21/17 06:59 06:59 06:59 Intake Total 840 720 120 Balance 840 720 120 Result Diagrams: 11/20/17 06:00 11/20/17 06:00 Additional Labs: Accuchecks 11/20/17 11/20/17 11/19/17 10:48 06:10 20:43 POC Glucose 221 H 137 H 113 H 11/19/17 16:41 POC Glucose 185 H Phys Exam - Physical Examination HEENT: PERRLA Respiratory: no wheezing, no rhonchi decreased breath sounds at the bases Cardiovascular: RRR, no significant murmur, no rub Gastrointestinal: soft, non-tender, no distention, positive bowel sounds Musculoskeletal: edema present 1+edema Dx/Plan (1) Acute on chronic heart failure Code(s): I50.9 - HEART FAILURE, UNSPECIFIED Status: Acute Qualifiers: Heart failure type: diastolic Qualified Code(s): I50.33 - Acute on chronic diastolic (congestive) heart failure Comment: Improving w diuresis. Recent stress test negative for ischemia. (2) UTI (urinary tract infection) Status: Acute Qualifiers: Urinary tract infection type: acute cystitis Hematuria presence: without hematuria Qualified Code(s): N30.00 - Acute cystitis without hematuria (3) Diabetes type 2, controlled Code(s): E11.9 - TYPE 2 DIABETES MELLITUS WITHOUT COMPLICATIONS Status: Chronic Qualifiers: Diabetes mellitus longterm insulin use: without intermediate school teacher use Diabetes mellitus complication status: with unspecified complications Qualified Code(s) : E11.8 - Type 2 diabetes mellitus with unspecified complications (4) HTN (hypertension) Code(s): I10 - ESSENTIAL (PRIMARY) HYPERTENSION Status: Chronic Qualifiers: Hypertension type: essential hypertension (5) Parkinson disease Code(s): G20 - PARKINSON'S DISEASE Status: Chronic (6) Paroxysmal atrial fibrillation Code(s): I48.0 - PAROXYSMAL ATRIAL FIBRILLATION Status: Chronic Comment: on xarelto, amiodarone and metoprolol. - Plan * Acute heart failure exacerbation- Still awaiting Echo results- continue to diurese as tolerated, * Paroxysmal AFIB- I spoke with her daughters over the phone this morning, and they have decided on starting Amiodarone * Advanced Parkinson's disease- she seems more drowsy- ? etiology- will observe , and avoid sedating medications * HTN- slightly elevated- she is on Metoprolol * DM- blood glucose is slightly elevated- will continue sliding scale insulin for now, since she is not eating much, and continue to hold glipizide .
--- NOTE | 2017-11-20 12:39 | PDOC.CTH ---
Cardiology Progress Note - Subjective Patient drowsy, per family has been sleeping most of the morning. Very little oral intake per family. Family has decided to proceed with amiodarone administration. All questions answered re: possible side effects of medication. - ROS not able to obtain ROS - Objective Vital Signs Temp Pulse Resp BP Pulse Ox 11/20/17 08:00 97.1 F L 71 20 11/20/17 03:52 98 F 71 36 H 160/68 H 93 L Admit Weight 162 lb Weight 170 lb 12.8 oz 11/19/17 11/20/17 11/21/17 06:59 06:59 06:59 Intake Total 840 720 120 Balance 840 720 120 - Physical Examination General/Neuro: other: (Lethargic, no response to verbal stimuli, baseline per family) Neck: no JVD present (supple) Lungs: other: (RR shallow, lungs CTA, diminished posteriorly bilateral bases) Heart: RRR (no significant murmur, rubs, or gallops) Abdomen: NT/ND, soft - Telemetry Telemetry Rhythm: SR 70s-90s - Labs Result Diagrams: 11/20/17 06:00 11/20/17 06:00 Troponin/CKMB CK-MB (CK-2) 1.4 ng/mL (0-6.6) 11/16/17 09:57 Troponin I 0.047 ng/mL (< 0.028) H 11/16/17 15:55 - Assessment/Plan 1. Paroxysmal AFib - maintaining NSR. On Xarelto 15mg daily. On Amiodarone 200mg daily, family/patient have decided they wish to continue Amiodarone, aware of potential side effects. 2. Acute on chronic CHF - recent normal ECHO, continue diuresis as tolerated 3. HTN - remains elevated, titrate medications as tolerated 4. CKD Stage 3 - avoid nephrotoxic drugs 5. DM II - managed by PCP 6. Advanced Parkinsons-more drowsy, per family at baseline. 7. DNR
--- NOTE | 2017-11-20 14:56 | PRG ---
DATE OF SERVICE: 11/20/2017 SUBJECTIVE: Ms. Pierson is lethargic today, but arouses. There is no family in the room. OBJECTIVE: VITAL SIGNS: Her blood pressure 162/71, pulse 68. NECK: Neck veins are distended. LUNGS: Clear. CARDIAC: Normal S1 and S2. ABDOMEN: Soft, nontender. EXTREMITIES: There is moderate edema. Echocardiogram showed the ejection fraction 55%-60%, moderate sized pericardial effusion, elevated pu lmonary artery pressure. There is no evidence of tamponade. ASSESSMENT: 1. Atrial arrhythmias, currently in sinus rhythm. 2. Lethargic. PLAN: Reduce metoprolol. As she has received extra dose of furosemide, we will cut the next dose. C ontinue follow with you. The patient is do not resuscitate status.
[2017-11-20] MEDS ORDERED: Furosemide 40 MG/4 ML VIAL ONE (19:44)
[2017-11-20] MEDS ORDERED: Furosemide 40 MG/4 ML VIAL SLOW IVP SCH (20:00)
[2017-11-20] MEDS: MEROPENEM 1 GM/50 ML 1 GM in Premix Bag 1 BAG IVPB SCH (22:13)
[2017-11-20] MEDS: Famotidine 20 MG TAB PO SCH (22:52)
[2017-11-20 22:54] LABS: Actual Bicarbonate (HCO3a) 39.1 mEq/L (22-26); Base Excess (BEa) 9.4 mEq/L (0 (+/-) 2.5); CO2 Tension 81.5 mmHg (35.0-45.0); Hematocrit-ABG 41.3 % (36.0-47.0); Hemoglobin (Hb) 13.5 g/dL (12.0-16.0); O2 Tension (PaO2) 81.7 mmHg (80.0-100.0)
[2017-11-20 22:55] LABS: Analyzer IN Cardio OR; Calcium, Ionized 1.2 mmol/L (1.12-1.30); Puncture Site L RADIAL
[2017-11-20 22:56] LABS: ALV-art Gradient 37.455 (0-20)
[2017-11-20] MEDS: Pravastatin Sodium 20 MG TAB PO SCH (22:58)
[2017-11-20] MEDS: Rivaroxaban 15 MG TAB PO SCH (22:59)
[2017-11-21] MEDS: Carbidopa/Levodopa 25-250 mg Tablet PO SCH (01:10)
[2017-11-21 03:40] LABS: #Lymphocytes 1.2 thou/uL (1.20-3.40); #Monocytes 0.7 thou/uL (0.11-0.59); %Basophils 0.3 % (0.0-1.0); %Eosinophils 0.6 % (0.0-10.0); %Lymphocytes 14.6 % (21.0-51.0); %Monocytes 8.9 % (0.0-10.0); %Neutrophils 75.6 % (42.0-75.0); Hemoglobin 13.8 g/dL (12.0-16.0); Mean Corpuscular HGB CONC 31.4 g/dL (32.0-36.0); Mean Corpuscular Hemoglobin 30.8 pg (27.0-31.0); Mean Corpuscular Volume 97.9 fl (81.0-99.0); Mean Platelet Volume 7.4 fL (7.4-10.4); Platelet Count 301 thou/uL (130-400); RBC Distribution Width 13.5 % (11.5-14.5); Red Blood Cell (RBC) Count 4.49 mill/uL (4.20-5.40); White Blood Cell (WBC) Count 7.9 thou/uL (4.8-10.8)
[2017-11-21 04:01] LABS: Anion Gap 13 mmol/L (10-20); BUN (Urea Nitrogen) 35 mg/dL (9.8-20.1); Calc. Creatinine Clearance 55 mL/min (70-130); Calcium 9.3 mg/dL (7.8-10.44); Carbon Dioxide 34 mmol/L (23-31); Chloride 104 mmol/L (98-107); Estimated GFR-MDRD 65; Glucose 155 mg/dL (83-110); Potassium 4.8 mmol/L (3.5-5.1); Sodium 146 mmol/L (136-145)
--- NOTE | 2017-11-21 05:31 | PDOC.EVN ---
Event Note - Event Note Event Note: Pt was lethargic last night, investigations revealed hypercapnic respiratory failure. Transfered to [facility] for BiPAP. Met with family by bedside, updated them. Also, she ceftriaxone discontinued, started on meropenem for UTI. (Pt has UTI in Jul 2017 with multi-drug resistant E. coli).
[2017-11-21] MEDS: Furosemide 20 MG/2 ML VIAL SLOW IVP SCH ×2 (07:32→14:38)
[2017-11-21] MEDS: MEROPENEM 1 GM/50 ML 1 GM in Premix Bag 1 BAG IVPB SCH ×2 (07:32→13:36)
[2017-11-21] MEDS ORDERED: Digoxin 0.5 MG/2 ML AMP SLOW IVP SCH (09:15)
--- NOTE | 2017-11-21 09:30 | PRG ---
DATE OF SERVICE: 11/21/2017 SUBJECTIVE: Ms. Pierson has continued to worsen. She has moved into intermediate care unit. She is on the BiPAP now. She has gone into atrial fibrillation with a rapid rate in the 120-130 range. PHYSICAL EXAMINATION: VITAL SIGNS: Her blood pressures in the 90s. LUNGS: Few rhonchi. CARDIAC: Irregularly irregular. ABDOMEN: Soft, nontender. EXTREMITIES: There is no edema. ASSESSMENT: 1. Diastolic congestive heart failure. 2. Atrial fibrillation with a rapid rate. PLAN: 1. She has received a single dose of digoxin. 2. Continue to monitor. Prognosis appears guarded to poor.
--- NOTE | 2017-11-21 09:31 | PDOC.PN ---
- Subjective Encounter Start Date: 11/21/17 Encounter Start Time: 09:29 Ms. Pierson was seen today in follow-up. She was moved to the [facility] last night. due to hypercapnic respiratory failure. She is currently on BiPAP now, and is awake and able to voice some concerns. She denies feeling any pain. - Objective Resuscitation Status: Resuscitation Status DNR:Do Not Resuscitate MAR Reviewed: Yes Vital Signs & Weight: Vital Signs (12 hours) Temp Pulse Resp BP Pulse Ox 11/21/17 08:05 80 11/21/17 08:04 100 11/21/17 07:24 97.6 F 88 39 H 140/72 100 11/21/17 04:26 76 11/21/17 04:25 100 11/21/17 04:00 97.6 F 75 43 H 136/64 95 11/21/17 00:29 97.3 F L 72 33 H 115/55 L 96 11/21/17 00:02 90 11/20/17 23:11 97.3 F L 72 20 139/55 L 99 Weight Admit Weight 162 lb Weight 160 lb I&O: 11/20/17 11/21/17 11/22/17 06:59 06:59 06:59 Intake Total 720 1010 Output Total 4800 Balance 720 -3790 Result Diagrams: 11/21/17 03:25 11/21/17 03:25 Additional Labs: Accuchecks 11/21/17 11/20/17 11/20/17 06:44 22:21 20:51 POC Glucose 148 H 116 H 94 11/20/17 11/20/17 11/20/17 16:29 15:53 10:48 POC Glucose 173 H 170 H 221 H Phys Exam - Physical Examination HEENT: PERRLA Respiratory: no wheezing, no rales, no rhonchi, clear to auscultation bilateral Cardiovascular: irregular + rapid heart rate Gastrointestinal: soft, non-tender, no distention, positive bowel sounds Musculoskeletal: edema present + non-pitting edema Dx/Plan (1) Acute on chronic heart failure Code(s): I50.9 - HEART FAILURE, UNSPECIFIED Status: Acute Qualifiers: Heart failure type: diastolic Qualified Code(s): I50.33 - Acute on chronic diastolic (congestive) heart failure Comment: Improving w diuresis. Recent stress test negative for ischemia. (2) UTI (urinary tract infection) Status: Acute Qualifiers: Urinary tract infection type: acute cystitis Hematuria presence: without hematuria Qualified Code(s): N30.00 - Acute cystitis without hematuria (3) Diabetes type 2, controlled Code(s): E11.9 - TYPE 2 DIABETES MELLITUS WITHOUT COMPLICATIONS Status: Chronic Qualifiers: Diabetes mellitus superintendent marine oil terminal insulin use: without usp use Diabetes mellitus complication status: with unspecified complications Qualified Code(s) : E11.8 - Type 2 diabetes mellitus with unspecified complications (4) HTN (hypertension) Code(s): I10 - ESSENTIAL (PRIMARY) HYPERTENSION Status: Chronic Qualifiers: Hypertension type: essential hypertension (5) Parkinson disease Code(s): G20 - PARKINSON'S DISEASE Status: Chronic (6) Paroxysmal atrial fibrillation Code(s): I48.0 - PAROXYSMAL ATRIAL FIBRILLATION Status: Chronic Comment: on xarelto, amiodarone and metoprolol. - Plan * Acute hypercapnic respiratory failure- currrently on BiPAP * Atrial fibrillation- she has gone back into AFIB with RVR- her blood pressure is low, so will give a dose of Digoxin * Advanced Parkinson's Disease- has left her essentially bed bound * Prognosis is poor even if her AFIB is controlled- Will discuss with family.
[2017-11-21] MEDS: Potassium Chloride 20 MEQ TAB PO SCH ×2 (09:32)
[2017-11-21] MEDS: Amiodarone 200 MG TAB PO SCH (09:32)
[2017-11-21] MEDS: Folic Acid 1 MG TAB PO SCH (09:32)
[2017-11-21] MEDS: Docusate 100 MG CAP PO SCH (09:32)
[2017-11-21] MEDS: Polyethylene Glycol 3350 17 GM Packet PO SCH (09:33)
[2017-11-21] MEDS: Metoprolol Tartrate 25 MG TAB PO SCH (09:33)
--- NOTE | 2017-11-21 09:37 | PDOC.EVN ---
Event Note - Event Note Event Note: Patient was seen for the purposes of Advanced Care Planning: The patient's children, including her daughter Maggie Craig, and her son were present for the discussion in the Family Conference room in the ICU. The patient is not considered decisional due to her current respiratory status, and periods of obtundation. The patient has advanced Parkinson's disease which [facility] She has had declining health over the past few months. She has told her daughter Kiara, that she is " ready" and she is " at peace". Since her admission to the hospital she has not objectively improved much, and has gone in and out of AFIB with RVR despite treatment. The benefits and risk risks of continued aggressive treatments were explained to the family, and they have aggres that what the patient would want would be to be at peace in herfinal days and months, and have agreed to Hospice Care. She Code status is DNR, and will remain DNR I have discussed this with the Nursing staff, and a Hospice Consult will be placed.
[2017-11-21] MEDS: D MANNOSE 1 GM MC SCH ×4 (10:21→13:34)
[2017-11-21] MEDS ORDERED: Lorazepam 2 MG/ML VIAL SLOW IVP SCH (19:00)
[2017-11-21 19:55] VITALS: BP 99/74; TEMP 97.1
--- NOTE | 2017-11-21 22:05 | DIS ---
PRIMARY CARE PHYSICIAN: Dr. Slade Damon. DATE OF ADMISSION: 11/16/2017 DATE OF DISCHARGE: 11/21/2017 DISCHARGE DISPOSITION: Inpatient hospice. DISCHARGE DIAGNOSES: 1. Atrial fibrillation with rapid ventricular response. 2. Acute on chronic heart failure exacerbation with preserved ejection fraction. 3. Acute hypercapnic respiratory failure. 4. Advanced Parkinson disease. 5. Diabetes mellitus type 2. 6. Hypertension. 7. Chronic kidney disease. 8. Urinary tract infection. 9. Acute metabolic encephalopathy. CODE STATUS: DNR. ALLERGIES: CODEINE. PROCEDURES DONE DURING THE ADMISSION: The patient had a CT scan of the brain, which was significant for some moderate atrophy. There were no acute abnormalities. The patient had an echocardiogram in which the ejection fraction was estimated at 55%-60%. There was some elevated PA pressure. The jordana ent had a urinalysis consistent with urinary tract infection. HOSPITAL COURSE: Ms. Pierson is a very pleasant 82-year-old female who was [facility] due to increasing confusion and rapid heart rate. She had urine, which was con sistent with urinary tract infection. She was also found to have elevated troponins, which were like ly as a result to the atrial fibrillation with rapid ventricular response. She was admitted and star roque on IV antibiotics and was started on a low dose beta-michele with regard to the atrial fibrillati on, which helped initially with her heart rate. During the course of her admission, she had mental s tatus which was waxing and waning between some periods of extreme sleepiness and lethargy to a very s hort periods of the patient being awake and lucid. The patient was started on amiodarone to help wit h maintaining her heart rhythm and rate, which she had briefly converted to sinus rhythm. However, s hortly before discharge, the patient became very lethargic and obtunded the day before discharge and then later on that evening and early into the morning, she became dyspneic and hypercapnic, requiring BiPAP. She also then converted back into atrial fibrillation with rapid ventricular response. At t his point, I had a conversation with the family with regard to her overall prognosis given her advanc ed dementia, overall declining condition prior to her hospitalization she was already bed bound. The patient's family communicated to me that she was getting tired of all the aggressive care and was "r chuck to move on." Given what the patient's implied wishes would be and talking with the patient's da ughters and son at the bedside, the decision was made to stop aggressive care at this point and trans ition her to inpatient hospice and this was done on 11/21/2017.
== END 2017-11-21 20:14 | disposition short-term general hospital (02) | DRG 291 ==
LOC: ERS 09:03 → 2NO 11:17 → IMCU/EMU 11-20 23:15
PROVIDERS: ADMIT Internal Medicine; ATTEND Internal Medicine
DX: I13.0 Hypertensive heart and chronic kidney disease with heart failure and stage 1 through stage 4 chronic kidney disease, or unspecified chronic kidney disease (principal); J96.02 Acute respiratory failure with hypercapnia; G93.40 Encephalopathy, unspecified; L89.153 Pressure ulcer of sacral region, stage 3; E11.22 Type 2 diabetes mellitus with diabetic chronic kidney disease; I48.0 Paroxysmal atrial fibrillation; G20 Parkinson's disease; I50.33 Acute on chronic diastolic (congestive) heart failure; N39.0 Urinary tract infection, site not specified; N18.3 Chronic kidney disease, stage 3 (moderate); E78.5 Hyperlipidemia, unspecified; I49.3 Ventricular premature depolarization; F02.80 Dementia in other diseases classified elsewhere, unspecified severity, without behavioral disturbance, psychotic disturbance, mood disturbance, and anxiety; Z66 Do not resuscitate; Z88.5 Allergy status to narcotic agent; Z90.49 Acquired absence of other specified parts of digestive tract
CPT/HCPCS: 36415; 36416; 51701; 70450; 71045; 80048; 80053; 80061; 81003; 81015; 82553; 82805; 83880; 84443; 84484; 85025; 93005; 93306; 93798; 94640; 94660; 96374; 96375; A4216; A4353; J0696; J1940; J2185; J7620